=== PATIENT | female | born 1960 | race Caucasian/White ===

== ENCOUNTER 2017-02-11 07:32 | Day surgery (SDC) | payer BC ==
[2017-02-11] MEDS ORDERED: Lactated Ringers 1,000 ML IV SCH ×2 (08:00→10:15)
[2017-02-11] MEDS ORDERED: Midazolam 1 MG/ML 2 ML SDV IV ONE (09:15)
[2017-02-11] MEDS ORDERED: Propofol 200 MG/20 ML SDV IV ONE (09:15)
[2017-02-11] MEDS ORDERED: Flumazenil 0.1 MG/ML 5 ML MDV IV ONE (09:15)
[2017-02-11] MEDS ORDERED: fentaNYL 100 MCG/2 ML SDV IV ONE (09:15)
[2017-02-11] MEDS ORDERED: Ondansetron 4 MG/2 ML SDV IVPUSH ONE (09:15)
[2017-02-11] MEDS ORDERED: Sodium Chloride 0.9% 10 ML Syringe FLUSH PRN (09:15)
[2017-02-11] MEDS ORDERED: Ketamine 500 mg/10 ML MDV IV ONE (09:15)
[2017-02-11] MEDS ORDERED: Bupivacaine 0.5% 30 ML SDV ONE (09:31)
[2017-02-11] MEDS ORDERED: Acetaminophen/HYDROcodone 325-5 MG Tab PO PRN (10:13)
--- NOTE | 2017-02-11 11:47 | OR ---
DATE OF OPERATION: 02/11/2017 SURGEON: Tanmay Kaplan MD PREOPERATIVE DIAGNOSIS: Triggering, left long finger. POSTOPERATIVE DIAGNOSIS: Triggering, left long finger. PROCEDURE PERFORMED: Trigger finger release, left long finger. OPERATIVE NOTE: The patient was taken to the operative suite, placed carefully on the operative table in a supine position. The patient was then given a light anesthetic. Tourniquet was then placed around the left arm near the axillary border. Left upper extremity was then elevated and a sterile ChloraPrep performed from the tip of the fingers to the tip of the tourniquet. Sterile draping procedure was then carried out. The tourniquet inflated to 200 mmHg pressure. The patient then had a small incision measuring approximately an inch in length over the Boyer aspect of the hand slightly distal to the transverse volar crease. This was made in line with the long finger. Skin and subcutaneous tissues were carefully dissected through after we had injected the area with 0.5% plain Xylocaine. The A1 lore was brought into view and it was incised proximally and distally. The patient had excellent excursion of the tendon afterwards. The patient had the skin closed with 3-0 nylon in interrupted vertical mattress fashion. The area was cleansed and dried and sterile dressings applied. Tourniquet deflated. COMPLICATIONS: None. ESTIMATED BLOOD LOSS: Less than 3 mL. /[id number] SARA/JAZLYN
[2017-02-11 12:09] VITALS: BP 140/72
== END 2017-02-11 11:29 | disposition home or self-care (01) ==
LOC: FB.SDS 07:32
PROVIDERS: ATTEND Orthopaedic Surgery
DX: M65.332 Trigger finger, left middle finger (principal); E11.9 Type 2 diabetes mellitus without complications; I10 Essential (primary) hypertension; E03.9 Hypothyroidism, unspecified; E78.5 Hyperlipidemia, unspecified; K21.9 Gastro-esophageal reflux disease without esophagitis; E55.9 Vitamin D deficiency, unspecified; F32.9 Major depressive disorder, single episode, unspecified; Z79.82 Long term (current) use of aspirin; Z79.4 Long term (current) use of insulin; Z79.899 Other long term (current) drug therapy; Z90.49 Acquired absence of other specified parts of digestive tract; Z90.710 Acquired absence of both cervix and uterus; Z98.890 Other specified postprocedural states; Z87.891 Personal history of nicotine dependence
CPT/HCPCS: 26055; 82962; A9270; J2250; J2405; J2704; J3010; J7120; J3490

== ENCOUNTER 2017-03-22 21:55 | Emergency (ER) | payer BC ==
[2017-03-22] MEDS ORDERED: Ketorolac 60 MG/2 ML SDV IM ONE (23:15)
[2017-03-22 23:32] VITALS: BP 127/62
--- NOTE | 2017-03-23 00:31 | ER ---
DATE SEEN: 03/22/2017 TIME SEEN: 2215 hours CHIEF COMPLAINT: Palpitations. HISTORY OF PRESENT ILLNESS: This is a 57-year-old female complaining of palpitations for the last week, worse with any movement, not associated with any chest pain or shortness of breath. She also complains of pain in the feet and restlessness. REVIEW OF SYSTEMS: All other systems unremarkable. PAST MEDICAL HISTORY: Peripheral neuropathy, type 2 diabetes, depression, anxiety, and tobacco abuse. ALLERGIES: None. PHYSICAL EXAMINATION: VITAL SIGNS: Blood pressure is normal. She is afebrile and temp being 99.2, oxygenation 96% on room air. ENT: Negative. NECK: Supple. CHEST: Clear. CARDIOVASCULAR: Normal. EXTREMITIES: No edema. LABORATORY DATA: White blood cell count is 13.4, glucose more than 500. She had normal a troponin and negative D-dimer. EKG normal sinus rhythm. IMPRESSION: 1. Palpitations. 2. Type 2 diabetes with hyperglycemia. 3. Peripheral neuropathy. 4. Restless legs syndrome. PLAN: I gave her ketorolac and insulin. Recommended follow up in the office next week. Return to the ED with any worsening symptoms. /[id number] GUILLE/JAZLYN
[2017-03-23] MEDS ORDERED: Insulin Aspart 100 Units/ML 3 ML Pen SUBCUT ONE (23:14)
== END 2017-03-22 23:29 | disposition home or self-care (01) ==
LOC: FB.ED 21:55
DX: R00.2 Palpitations (principal); E11.65 Type 2 diabetes mellitus with hyperglycemia; E11.42 Type 2 diabetes mellitus with diabetic polyneuropathy; G25.81 Restless legs syndrome; F41.9 Anxiety disorder, unspecified; F32.9 Major depressive disorder, single episode, unspecified
CPT/HCPCS: 36415; 80048; 83880; 84484; 85025; 85379; 93005; 96372; 99285; J1885

== ENCOUNTER 2017-04-30 14:35 | Emergency (ER) | payer BC ==
[2017-04-30] MEDS ORDERED: Sodium Chloride 0.9% 1,000 ML IV SCH (16:00)
[2017-04-30] MEDS ORDERED: Sodium Chloride 0.9% 10 ML Syringe FLUSH PRN (17:01)
[2017-04-30 17:24] VITALS: BP 133/71
--- NOTE | 2017-05-04 12:44 | ER ---
DATE SEEN: 04/30/2017 TIME SEEN: The patient was seen at 1545 hours. 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 Had mild headache and had mild abdominal discomfort. She is diabetic. Today's glucose is 239. She considers herself to be a nervous patient. She has a special event going on this coming up weekend. She is concerned about being present for that (her niece's wedding). She has had palpitations in the past. She has been followed by Dr. Moran and she had a Holter monitor performed approximately 2 days and results were discussed with Dr. Moran. And she was told "She had no significant arrhythmias" MEDICATIONS: 1. Gabapentin 600 mg at bedtime. 2. Vitamin D. 3. Aspirin. 4. Ipratropium. 5. Albuterol nebs p.r.n. She has chronic obstructive lung disease. She is nonsmoker. 6. Chromium amino acid chelate. 7. Cymbalta for depression. 8. Fluticasone. 9. Salmeterol. 10.Advair Diskus. 11.Clobetasol propionate 0.5% topical b.i.d. 12.Insulin aspart 60 units subcu injection t.i.d. 13.Glargine 70 units b.i.d. 14.Omeprazole 20 mg daily. 15.Bupropion (Wellbutrin XL) 300 mg daily. 16.Sitagliptin-Janumet (metformin) b.i.d. 17.Sennosides-docusate sodium p.r.n. ALLERGIES: Adhesives. OTHER SIGNIFICANT PAST MEDICAL HISTORY: She has been evaluated for atypical chest pain in the past. Piriformis syndrome, thigh pain, migraines, pneumonia, esophagitis, gastroduodenitis, and colon polyps. REVIEW OF SYSTEMS: HEENT: Mild headache. Denies compromise in vision or neck stiffness or previous trauma. Denies sinusitis, sore throat, or cough. CARDIORESPIRATORY: As above. No chest pain. No cough. No irregularity of heartbeat. No fever. GI: She has midepigastric abdominal discomfort from the midepigastrium to the infraumbilical area. It is about 12-15 inches high and also between the right and left midclavicular line. No history of kidney stones. No history of blood in the stool, black tarry stool, diarrhea, constipation, GERD. ENDOCRINE: Denies large swings in her glucose. She has done quite well. Denies early satiety. Denies peripheral neuropathy. No gait disturbance. NEURO: Negative. No history of seizures, head injuries, or black out or TIAs or CVAs. PHYSICAL EXAMINATION: VITAL SIGNS: Blood pressure 137/62, heart rate 63 regular, oxygen saturations 98%, respirations 14, temperature 36.1 degrees. CONSTITUTIONAL: The patient is alert, slightly anxious, overweight. She is talkative and appropriate and has good eye contact. HEENT: PERRLA intact. Pharynx without abnormality. NECK: Supple. LUNGS: Clear to auscultation without rales, rhonchi, or wheezes. HEART: S1, S2. No irregular rate or rhythm. ABDOMEN: Soft. No guarding. No abdominal discomfort. There is increased abdominal girth. No CVA percussion tenderness. EXTREMITIES: Lower extremities without abnormality. Normal deep tendon reflexes. Normal upper and lower extremities. NEURO: Cranial nerves 2 through 12 intact. Oriented x3. No past pointing. No dysmetria. No pronator drift. No paresis or weakness. She has good muscle strength in upper and lower extremities. ASSESSMENT: 1. Anxiety disorder. 2. Dizziness and vomiting, etiology indeterminate, possibly something she has eaten that may have had transient food poisoning. I spoke to Dr. Moran about this patient. There is some question she might have palpitation, may warrant beta-blockers, but he noted she had Holter monitor that was negative. "They were just sinus arrhythmias." And Dr Braun felt she does not warrant beta- blockers or any heart medication to control heart rate. He felt that she would do well with propranolol for anxiety. PLAN: Start propranolol 10 to 20 mg stat at the onset of anxiety. She can use up to 30 mg. She has follow up with Dr. Moran next week. The patient dismissed, encouraged to drink adequate fluids. DIAGNOSES: 1. Anxiety induced palpitations and irregular heartbeat. Dizziness. 2. Etiology of vomiting and sweating probably food poison related Escherichia coli attack or other staphylococcal food poisons. 3. Overweight. 4. Anxiety disorder. 5. Diabetes relatively well controlled. 6. No evidence for myocardial infarction or arrhythmia. She has normal EKG with low voltage precordial leads and sinus rhythm. No evidence for ST elevation. The patient to follow up with doctor in a week. TIME SPENT: Time spent with the patient is 45 minutes. /[id number] JACK/JAZLYN SANCHEZ
== END 2017-04-30 17:23 | disposition home or self-care (01) ==
LOC: FB.ED 14:35
DX: F41.9 Anxiety disorder, unspecified (principal); R42 Dizziness and giddiness; R11.10 Vomiting, unspecified; E11.9 Type 2 diabetes mellitus without complications; Z91.048 Other nonmedicinal substance allergy status; Z79.4 Long term (current) use of insulin; Z79.899 Other long term (current) drug therapy
CPT/HCPCS: 36415; 80053; 85025; 93005; 96360; 99284; J7040; J7050

== ENCOUNTER 2017-06-21 08:00 | Emergency (ER) | payer BC ==
[2017-06-21] MEDS ORDERED: Lactated Ringers 1,000 ML IV ONE (08:31)
[2017-06-21] MEDS ORDERED: diphenhydrAMINE 50 MG/ML SDV IVPUSH ONE (08:32)
[2017-06-21] MEDS ORDERED: Ketorolac 30 MG/ML SDV IVPUSH ONE (08:32)
[2017-06-21] MEDS ORDERED: Prochlorperazine 10 MG/2 ML SDV IVPUSH ONE (08:32)
[2017-06-21 08:35] VITALS: BP 111/75
--- NOTE | 2017-06-21 08:38 | EDM.PDOC ---
ED HPI GENERAL MEDICAL PROBLEM - General Chief Complaint: Headache Stated Complaint: HEAD ACHE Time Seen by Provider: 06/21/17 08:25 Source of Information: Reports: Patient, Old Records History Limitations: Reports: No Limitations - History of Present Illness INITIAL COMMENTS - FREE TEXT/NARRATIVE: 57 yo female with a pHx of migraine presents with another one that began about noon yesterday. Has vomited several times. No fever. Sensitive to light. No hematemesis. 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 Is a little light-headed with standing. Took Excedrin Migraine without benefit. 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 below) (Excedrin Migraine yesterday) - Related Data Allergies Allergy/AdvReac Type Severity Reaction Status Date / Time adhes Allergy Rash Uncoded 04/30/17 15:57 Home Meds: Home Meds Aspirin [Adult Low Dose Aspirin EC] 325 mg PO DAILY 09/16/14 [History] Albuterol/Ipratropium [DuoNeb 3.0-0.5 MG/3 ML] 1 - 2 puff IH ASDIRECTED PRN [History] DULoxetine [Cymbalta] 60 mg PO DAILY 12/11/15 [History] Insulin Aspart [Novolog Flexpen] 3 - 60 unit SQ ASDIRECTED 12/11/15 [History] Insulin Glargine,Hum.Rec.Anlog [Toujeo Solostar] 80 unit SQ BID 12/11/15 [ History] Ondansetron [Zofran] 4 mg PO Q6H PRN 12/11/15 [History] Sennosides/Docusate Sodium [Senokot-S Tablet] 1 each PO DAILY PRN 12/11/15 [ History] sitaGLIPtin Phos/Metformin HCl [Janumet 50-1,000 MG] 1 tab PO BID 12/11/15 [ History] Clobetasol [Clobetasol Propionate 0.05%] 45 gm TOP BID 02/10/17 [History] Fluticasone/Salmeterol [Advair Diskus 100-50] 1 puff INH BID 02/10/17 [History] Gabapentin [Gralise] 200 mg PO DAILY 02/10/17 [History] Gabapentin [Neurontin] 300 mg PO DAILY 02/10/17 [History] Omeprazole Magnesium [Prilosec Otc] 20 mg PO DAILY 02/10/17 [History] buPROPion [Wellbutrin XL] 300 mg PO DAILY 02/10/17 [History] Propranolol [Inderal] 10 mg PO QID PRN #20 tablet 04/30/17 [Rx] Acetaminop/Dichlphn/Isomethept [Midrin 325-100-65 MG] 1 cap PO Q2H PRN #14 cap 06/21/17 [Rx] Past Medical History HEENT History: Reports: Cataract, Impaired Vision Cardiovascular History: Reports: Arrhythmia, High Cholesterol, Hypertension Respiratory History: Reports: SOB Gastrointestinal History: Reports: Gastritis, GERD 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: , Other (See Below) Other OB/BYN History: VULVULAR / VAGINAL LESIONS REMOVED Musculoskeletal History: Reports: Fibromyalgia, Other (See Below) Other Musculoskeletal History: MYALGIA AND MYOSITIS Neurological History: Reports: Migraines, Neuropathy, Peripheral Psychiatric History: Reports: Anxiety, Depression Endocrine/Metabolic History: Reports: Diabetes, Type II, Hypothyroidism, Obesity /BMI 30+ Immunologic History: Reports: None Oncologic (Cancer) History: Reports: Cervix - Infectious Disease History 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 I PARA I. SON AT AGE 31 OF MELANOMA. Musculoskeletal Surgical History: Reports: Carpal Tunnel Social & Family History - Family History Family Medical History: Noncontributory - Tobacco Use Smoking Status *Q: Current Every Day Smoker Years of Tobacco use: 37 Packs/Tins Daily: 1 Used Tobacco, but Quit: No Month Tobacco Last Used: 06/01/2016 Second Hand Smoke Exposure: Yes - Caffeine Use Caffeine Use: Reports: Coffee, Soda - Alcohol Use Days Per Week of Alcohol Use: 0 - Recreational Drug Use Recreational Drug Use: No ED ROS GENERAL - Review of Systems Review Of Systems: See Below Constitutional: Reports: Decreased Appetite HEENT: Reports: No Symptoms Respiratory: Reports: No Symptoms Cardiovascular: Reports: No Symptoms GI/Abdominal: Reports: Decreased Appetite, Nausea, Vomiting. Denies: Constipation, Diarrhea : Reports: Incontinence Musculoskeletal: Reports: No Symptoms Skin: Reports: No Symptoms Neurological: Reports: Headache, Weakness Psychiatric: Reports: No Symptoms - Physical Exam Exam: See Below Exam Limited By: No Limitations General Appearance: Alert, WD/WN, Mild Distress Eye Exam: Bilateral Eye: Normal Inspection Ears: Normal External Exam, Normal Canal, Hearing Grossly Normal, Normal TMs Nose: Normal Inspection, Normal Mucosa, No Blood Throat/Mouth: Normal Inspection, Normal Lips, Normal Teeth, Normal Oropharynx, Normal Voice, No Airway Compromise Head Exam: Atraumatic, Normocephalic Neck: Normal Inspection, Supple, Non-Tender Respiratory/Chest: No Respiratory Distress, Lungs Clear, Normal Breath Sounds, No Accessory Muscle Use Cardiovascular: Regular Rate, Rhythm, No Edema GI/Abdominal: Normal Bowel Sounds, Soft, Non-Tender Neuro Exam (Abbreviated): Alert, Oriented, CN II-XII Intact, Normal Cognition, No Motor/Sensory Deficits Back Exam: Normal Inspection Extremities: Normal Inspection, Normal Range of Motion, Non-Tender, No Pedal Edema Psychiatric: Normal Affect, Normal Mood Skin Exam: Warm, Dry, Intact, Normal Color, No Rash Course - Vital Signs Last Recorded V/S: Last Vital Signs Temp 35.8 C 06/21/17 08:15 Pulse 66 06/21/17 08:15 Resp 18 06/21/17 08:15 BP 111/75 06/21/17 08:15 Pulse Ox 96 06/21/17 08:15 - Orders/Labs/Meds Orders: Active Orders 24 hr Category Date Time Status Accu Check [Blood Glucose Check, Bedside] [] ONETIME Care 06/21/17 08:33 Active Labs: Laboratory Tests 06/21/17 Range/Units 08:06 POC Glucose 113 (80-116) mg/dL Meds: Medications Discontinued Medications Generic Name Dose Route Start Last Admin Trade Name Freq PRN Reason Stop Dose Admin Diphenhydramine HCl 25 mg 06/21/17 08:32 06/21/17 08:57 Benadryl IVPUSH 06/21/17 08:33 25 mg ONETIME ONE Administration Lactated Ringer's 1,000 mls @ 1,000 mls/hr 06/21/17 08:31 06/21/17 08:57 Ringers, Lactated IV 06/21/17 09:30 1,000 mls/hr BOLUS ONE Administration Ketorolac Tromethamine 30 mg 06/21/17 08:32 06/21/17 08:57 Toradol IVPUSH 06/21/17 08:33 30 mg ONETIME ONE Administration Prochlorperazine Edisylate 10 mg 06/21/17 08:32 06/21/17 08:57 Compazine IVPUSH 06/21/17 08:33 10 mg ONETIME ONE Administration Departure - Departure Time of Disposition: 10:00 Disposition: Home, Self-Care 01 Condition: Good Clinical Impression: Migraine Qualifiers: Migraine type: without aura Status migrainosus presence: with status migrainosus Intractability: not intractable Qualified Code(s): G43.001 - Migraine without aura, not intractable, with status migrainosus - Discharge Information Prescriptions: Acetaminop/Dichlphn/Isomethept [Midrin 325-100-65 MG] 1 cap PO Q2H PRN #14 cap PRN Reason: Headache Referrals: Horacio Moran MD [Primary Care Provider] - Forms: ED Department Discharge Additional Instructions: Continue your present medicines. Add magnesium 500 mg daily to reduce the frequency of your TOLENTINO's. Take Midrin as directed to tx any future TOLENTINO's. Recheck with your provider in the next couple of weeks-call for an appt. No driving today. - My Orders Last 24 Hours: My Active Orders 06/21/17 08:33 Accu Check [Blood Glucose Check, Bedside] [RC] ONETIME - Assessment/Plan Last 24 Hours: My Active Orders 06/21/17 08:33 Accu Check [Blood Glucose Check, Bedside] [RC] ONETIME
== END 2017-06-21 10:10 | disposition home or self-care (01) ==
LOC: FB.ED 08:00
DX: G43.001 Migraine without aura, not intractable, with status migrainosus (principal); E78.00 Pure hypercholesterolemia, unspecified; K21.9 Gastro-esophageal reflux disease without esophagitis; F41.9 Anxiety disorder, unspecified; F32.9 Major depressive disorder, single episode, unspecified; E03.9 Hypothyroidism, unspecified; E66.9 Obesity, unspecified; F17.210 Nicotine dependence, cigarettes, uncomplicated; Z91.09 Other allergy status, other than to drugs and biological substances; Z90.89 Acquired absence of other organs; Z90.710 Acquired absence of both cervix and uterus; Z79.4 Long term (current) use of insulin; Z79.82 Long term (current) use of aspirin; Z79.899 Other long term (current) drug therapy; Z68.35 Body mass index [BMI] 35.0-35.9, adult
CPT/HCPCS: 82962; 96361; 96374; 96375; 99283; J0780; J1200; J1885; J7120

== ENCOUNTER 2017-08-03 01:53 | Emergency (ER) | payer BC ==
[2017-08-03] MEDS ORDERED: Sodium Chloride 0.9% 1,000 ML IV ONE (02:08)
[2017-08-03] MEDS ORDERED: Ketorolac 30 MG/ML SDV IVPUSH ONE (02:09)
[2017-08-03] MEDS ORDERED: Metoclopramide 10 MG/2 ML SDV IVPUSH ONE (02:09)
[2017-08-03] MEDS ORDERED: diphenhydrAMINE 50 MG/ML SDV IVPUSH ONE (02:10)
[2017-08-03 03:35] VITALS: BP 121/84
--- NOTE | 2017-08-03 03:43 | EDM.PDOC ---
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(s) Other Treatments DUCK FARMER: Midrin Headache Pain Score (Numeric/FACES): 6 - Related Data Allergies Allergy/AdvReac Type Severity Reaction Status Date / Time adhes Allergy Rash Uncoded 08/03/17 02:29 Home Meds: Home Meds Aspirin [Adult Low Dose Aspirin EC] 325 mg PO DAILY 09/16/14 [History] DULoxetine [Cymbalta] 60 mg PO DAILY 12/11/15 [History] Insulin Aspart [Novolog Flexpen] 3 - 60 unit SQ ASDIRECTED 12/11/15 [History] Insulin Glargine,Hum.Rec.Anlog [Toujeo Solostar] 80 unit SQ BID 12/11/15 [ History] Ondansetron [Zofran] 4 mg PO Q6H PRN 12/11/15 [History] Sennosides/Docusate Sodium [Senokot-S Tablet] 1 each PO DAILY PRN 12/11/15 [ History] sitaGLIPtin Phos/Metformin HCl [Janumet 50-1,000 MG] 1 tab PO BID 12/11/15 [ History] Clobetasol [Clobetasol Propionate 0.05%] 45 gm TOP BID 02/10/17 [History] Fluticasone/Salmeterol [Advair Diskus 100-50] 1 puff INH BID PRN 02/10/17 [ History] Gabapentin [Gralise] 200 mg PO DAILY 02/10/17 [History] Gabapentin [Neurontin] 300 mg PO BEDTIME 02/10/17 [History] Omeprazole Magnesium [Prilosec Otc] 20 mg PO DAILY 02/10/17 [History] buPROPion [Wellbutrin XL] 300 mg PO DAILY 02/10/17 [History] Propranolol [Inderal] 10 mg PO QID PRN #20 tablet 04/30/17 [Rx] Acetaminop/Dichlphn/Isomethept [Midrin 325-100-65 MG] 1 cap PO Q2H PRN #14 cap 06/21/17 [Rx] Past Medical History HEENT History: Reports: Cataract, Impaired Vision Cardiovascular History: Reports: Arrhythmia, High Cholesterol, Hypertension Respiratory History: Reports: SOB Gastrointestinal History: Reports: Gastritis, GERD 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: , Other (See Below) Other OB/BYN History: VULVULAR / VAGINAL LESIONS REMOVED Musculoskeletal History: Reports: Fibromyalgia, Other (See Below) Other Musculoskeletal History: MYALGIA AND MYOSITIS Neurological History: Reports: Migraines, Neuropathy, Peripheral Psychiatric History: Reports: Anxiety, Depression Endocrine/Metabolic History: Reports: Diabetes, Type II, Hypothyroidism, Obesity /BMI 30+ Immunologic History: Reports: None Oncologic (Cancer) History: Reports: Cervix - Infectious Disease History Infectious Disease History: Reports: [id number] Enterobacteriaceae - Past Surgical History HEENT Surgical History: Reports: Cataract Surgery, Oral Surgery, Tonsillectomy Other HEENT Surgeries/Procedures: BILATERAL CATARACT SURGERY GI Surgical History: Reports: Appendectomy, Colonoscopy, EGD Female Surgical History: Reports: Hysterectomy, Other (See Below) Other Female Surgeries/Procedures: URETHRAL SUSPENPENSION, BLADDER REPAIR. I PARA I. SON AT AGE 31 OF MELANOMA. Musculoskeletal Surgical History: Reports: Carpal Tunnel Social & Family History - Family History Family Medical History: Noncontributory - Tobacco Use Smoking Status *Q: Current Every Day Smoker Years of Tobacco use: 37 Packs/Tins Daily: 1 Used Tobacco, but Quit: No Month Tobacco Last Used: 06/01/2016 Second Hand Smoke Exposure: Yes - Caffeine Use Caffeine Use: Reports: Coffee, Soda - Alcohol Use Days Per Week of Alcohol Use: 0 - Recreational Drug Use Recreational Drug Use: No ED ROS GENERAL - Review of Systems Review Of Systems: See Below Constitutional: Reports: No Symptoms HEENT: Reports: No Symptoms Respiratory: Reports: No Symptoms Cardiovascular: Reports: No Symptoms Endocrine: Reports: No Symptoms GI/Abdominal: Reports: No Symptoms : Reports: No Symptoms Musculoskeletal: Reports: No Symptoms Skin: Reports: No Symptoms Neurological: Reports: Headache Psychiatric: Reports: No Symptoms Hematologic/Lymphatic: Reports: No Symptoms Immunologic: Reports: No Symptoms - Physical Exam Exam: See Below Exam Limited By: No Limitations General Appearance: Alert, WD/WN, Mild Distress Eye Exam: Bilateral Eye: Normal Inspection, PERRL Ears: Normal External Exam Nose: Normal Inspection Throat/Mouth: Normal Inspection, Normal Voice, No Airway Compromise Head Exam: Atraumatic, Normocephalic Neck: Normal Inspection, Supple, Non-Tender Respiratory/Chest: No Respiratory Distress, Lungs Clear, Normal Breath Sounds, No Accessory Muscle Use, Chest Non-Tender Cardiovascular: Regular Rate, Rhythm, No Edema, No Gallop, No JVD, No Rub, Other (2/6 MIRANDA at LSB) GI/Abdominal: Soft, Non-Tender, No Distention Neuro Exam (Abbreviated): Alert, Oriented, CN II-XII Intact, Normal Cognition, No Motor/Sensory Deficits Back Exam: Normal Inspection, Full Range of Motion, NT Extremities: Normal Inspection, Normal Range of Motion, Non-Tender, No Pedal Edema Psychiatric: Normal Affect, Normal Mood Skin Exam: Warm, Dry, Intact, Normal Color, No Rash Course - Vital Signs Last Recorded V/S: Last Vital Signs Temp 37.1 C 08/03/17 02:25 Pulse 69 08/03/17 02:25 Resp 18 08/03/17 02:25 BP 121/84 08/03/17 02:25 Pulse Ox 97 08/03/17 02:25 - Orders/Labs/Meds Meds: Medications Discontinued Medications Generic Name Dose Route Start Last Admin Trade Name Hattie PRN Reason Stop Dose Admin Diphenhydramine HCl 50 mg 08/03/17 02:10 08/03/17 02:37 Benadryl IVPUSH 08/03/17 02:11 50 mg ONETIME ONE Administration Sodium Chloride 1,000 mls @ 999 mls/hr 08/03/17 02:08 08/03/17 02:37 Normal Saline IV 08/03/17 03:08 999 mls/hr .BOLUS ONE Administration Ketorolac Tromethamine 30 mg 08/03/17 02:09 08/03/17 02:38 Toradol IVPUSH 08/03/17 02:10 30 mg ONETIME ONE Administration Metoclopramide HCl 10 mg 08/03/17 02:09 08/03/17 02:37 Reglan IVPUSH 08/03/17 02:10 10 mg ONETIME ONE Administration Departure - Departure Time of Disposition: 03:42 Disposition: Home, Self-Care 01 Condition: Good Clinical Impression: Migraine Qualifiers: Migraine type: without aura Status migrainosus presence: with status migrainosus Intractability: not intractable Qualified Code(s): G43.001 - Migraine without aura, not intractable, with status migrainosus - Discharge Information Instructions: Recurrent Migraine Headache, [id number] Referrals: Horacio Moran MD [Primary Care Provider] - Additional Instructions: To break pain cycle, take ibuprofen 200 mg 3 tabs 4 times today. Use ice to forehead for 10 minutes every 2 hours as needed. Rest. See you doctor in 1-2 days.
== END 2017-08-03 03:55 | disposition home or self-care (01) ==
LOC: FB.ED 01:53
DX: G43.001 Migraine without aura, not intractable, with status migrainosus (principal); I10 Essential (primary) hypertension; E78.00 Pure hypercholesterolemia, unspecified; E11.42 Type 2 diabetes mellitus with diabetic polyneuropathy; E03.9 Hypothyroidism, unspecified; K21.9 Gastro-esophageal reflux disease without esophagitis; F32.9 Major depressive disorder, single episode, unspecified; F17.210 Nicotine dependence, cigarettes, uncomplicated; Z79.4 Long term (current) use of insulin; Z79.82 Long term (current) use of aspirin; Z79.899 Other long term (current) drug therapy; Z91.048 Other nonmedicinal substance allergy status
CPT/HCPCS: 96361; 96374; 96375; 99283; J1200; J1885; J2765; J7040

== ENCOUNTER 2018-10-09 13:06 | Emergency (ER) | payer MEDICAID ==
[2018-10-09] MEDS ORDERED: Alum Hydroxide/Mag Hydroxide 15 ML, Lidocaine 2% 15 ML PO ONE ×2 (13:14)
[2018-10-09] MEDS ORDERED: Ondansetron 8 MG Tab.DIS PO ONE (13:14)
[2018-10-09] MEDS ORDERED: Aspirin 81 MG Tab.EC PO ONE ×2 (13:16→13:18)
--- NOTE | 2018-10-09 13:20 | EDM.PDOC ---
ED HPI GENERAL MEDICAL PROBLEM - General Stated Complaint: SOB,CHEST PAIN,DIZZINESS,NECK PAIN Time Seen by Provider: 10/09/18 13:06 Source of Information: Reports: Patient, Other History Limitations: Reports: No Limitations - History of Present Illness INITIAL COMMENTS - FREE TEXT/NARRATIVE: 58 y.o.w.f with IDDM- smoker- came to the walk in clinic due to epigastric pain and left ant ant chest wall pain, she was transferred to the ed for further evaluation. An arrival, pt c/o left ant chest wall pain with palpation and deep inspiration, epigastric pain, pain at her left thigh (chronic), feet burning and pain/swelling/redness right 2nd toe. No N/V/D or diaphoresis. 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) Epigastric Pain Score (Numeric/FACES): 8 - Related Data Allergies Allergy/AdvReac Type Severity Reaction Status Date / Time No Known Allergies Allergy Verified 10/09/18 13:24 Home Meds: Home Meds Aspirin [Adult Low Dose Aspirin EC] 81 mg PO DAILY 09/16/14 [History] DULoxetine [Cymbalta] 60 mg PO DAILY 12/11/15 [History] Insulin Aspart [Novolog Flexpen] 3 - 60 unit SQ ASDIRECTED 12/11/15 [History] Insulin Glargine,Hum.Rec.Anlog [Toujeo Solostar] 90 unit SQ DAILY 12/11/15 [ History] Sennosides/Docusate Sodium [Senokot-S Tablet] 1 each PO DAILY PRN 12/11/15 [ History] sitaGLIPtin Phos/Metformin HCl [Janumet 50-1,000 MG] 1 tab PO BID 12/11/15 [ History] Clobetasol [Clobetasol Propionate 0.05%] 45 gm TOP BID 02/10/17 [History] Fluticasone/Salmeterol [Advair Diskus 100-50] 1 puff INH BID PRN 02/10/17 [ History] Gabapentin [Gralise] 200 mg PO DAILY 02/10/17 [History] Gabapentin [Neurontin] 300 mg PO BEDTIME 02/10/17 [History] Omeprazole Magnesium [Prilosec Otc] 20 mg PO DAILY 02/10/17 [History] buPROPion [Wellbutrin XL] 300 mg PO DAILY 02/10/17 [History] Meloxicam 7.5 mg PO ASDIRECTED 08/29/18 [History] Oxybutynin Chloride [Ditropan Xl] 10 mg PO DAILY 08/29/18 [History] Simvastatin 20 mg PO DAILY 08/29/18 [History] metFORMIN HCl [Metformin HCl] 1,000 mg PO BID 08/29/18 [History] rOPINIRole [Requip] 2 mg PO BEDTIME 08/29/18 [History] traZODone HCl [Trazodone HCl] 50 mg PO BEDTIME 08/29/18 [History] Amoxicillin/Potassium Clav [Augmentin 875-125 Tablet] 1 each PO BID #20 tablet 10/09/18 [Rx] Clotrimazole [Lotrimin AF] 0.01 gm TOP BID #1 tube 10/09/18 [Rx] Past Medical History HEENT History: Reports: Cataract, Impaired Vision Cardiovascular History: Reports: Arrhythmia, High Cholesterol, Hypertension Respiratory History: Reports: SOB Gastrointestinal History: Reports: Gastritis, GERD 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: , Other (See Below) Other TRAFFIC I MANAGER History: VULVULAR / VAGINAL LESIONS REMOVED Musculoskeletal History: Reports: Fibromyalgia, Other (See Below) Other Musculoskeletal History: MYALGIA AND MYOSITIS Neurological History: Reports: Migraines, Neuropathy, Peripheral Psychiatric History: Reports: Anxiety, Depression Endocrine/Metabolic History: Reports: Diabetes, Type II, Hypothyroidism, Obesity /BMI 30+ Immunologic History: Reports: None Oncologic (Cancer) History: Reports: Cervix - Infectious Disease History 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 I PARA I. SON AT AGE 31 OF [place]. Musculoskeletal Surgical History: Reports: Carpal Tunnel Social & Family History - Family History Family Medical History: Noncontributory - Caffeine Use Caffeine Use: Reports: Coffee ED ROS GENERAL - Review of Systems Review Of Systems: See Below Constitutional: Reports: Malaise HEENT: Reports: No Symptoms Respiratory: Reports: Pleuritic Chest Pain Cardiovascular: Reports: Chest Pain Endocrine: Reports: No Symptoms GI/Abdominal: Reports: Abdominal Pain (epigastric) : Reports: No Symptoms Musculoskeletal: Reports: Leg Pain (left thigh, chronic (years)) Skin: Reports: No Symptoms Neurological: Reports: No Symptoms Psychiatric: Reports: No Symptoms Hematologic/Lymphatic: Reports: No Symptoms Immunologic: Reports: No Symptoms ED EXAM, GENERAL - Physical Exam Exam: See Below Exam Limited By: No Limitations General Appearance: Alert, WD/WN, Moderate Distress Eye Exam: Bilateral Eye: Normal Inspection Ears: Normal External Exam Ear Exam: Bilateral Ear: Auricle Normal Nose: Normal Inspection, Normal Mucosa, No Blood Throat/Mouth: Normal Inspection, Normal Lips, Normal Voice, No Airway Compromise Head: Atraumatic, Normocephalic Neck: Normal Inspection, Supple, Non-Tender, Full Range of Motion Respiratory/Chest: No Respiratory Distress, Lungs Clear Cardiovascular: Normal Peripheral Pulses, Regular Rate, Rhythm, No Edema, No Gallop, No JVD, No Murmur, No Rub Peripheral Pulses: 2+: Brachial (L) GI/Abdominal: Normal Bowel Sounds (Female) Exam: Deferred Rectal (Female) Exam: Deferred Back Exam: Normal Inspection Extremities: Normal Range of Motion, Normal Capillary Refill, Redness (right 2nd toe) Neurological: Alert, Oriented, CN II-XII Intact, Normal Cognition, Abnormal Gait (due to right toe pain) Psychiatric: Normal Affect, Normal Mood Skin Exam: Rash (right second toe) Lymphatic: No Adenopathy EKG INTERPRETATION EKG Date: 10/09/18 Time: 13:10 Rhythm: NSR Rate (Beats/Min): 68 [place]: Normal P-Wave: Present QRS: Normal ST-T: Normal QT: Normal Comparison: NA - No Prior EKG Course - Vital Signs Text/Narrative:: 58 y.o.w.f with IDDM- smoker- came to the walk in clinic due to epigastric pain and left ant ant chest wall pain, she was transferred to the ed for further evaluation. An arrival, pt c/o left ant chest wall pain with palpation and deep inspiration, epigastric pain, pain at her left thigh (chronic), feet burning and pain/swelling/redness right 2nd toe. No N/V/D or diaphoresis. 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 147/107 RR 20 Pulse ox 98% on RA Temp 36.9 Pulse 89 PE: WNWD W F with IDDM and multiple complains, please see above Imaging: CXR, R food: Right 2nd toe swelling Labs: CBC NL BMP pos for Na 134 HGB/A1C 9.3, BUN/CR ratio elevated Cl 97 UA: Glucosuria Impression: Gastritis, Pleurisy, IDDM with hyperglycemia, Hammer toe 2nd right foot with possible osteomyelitis. Left thigh pain (chronic), BUN/CR ratio elevated. Tinea pedis bilat. Tx: Toradol, Zofran, GI cocktail. Insulin, Augmentin, NS Reexam: Improved, pt was ambulating on D/C fine BS on D/C was 254 Plan: D/C with instructions Last Recorded V/S: Last Vital Signs Temp 36.9 C 10/09/18 13:06 Pulse 59 L 10/09/18 15:30 Resp 19 10/09/18 15:30 BP 143/70 H 10/09/18 15:30 Pulse Ox 98 10/09/18 15:30 - Orders/Labs/Meds Orders: Active Orders 24 hr Category Date Time Status Accu Check [Blood Glucose Check, Bedside] [RC] ONETIME Care 10/09/18 17:51 Active EKG Documentation Completion [RC] ASDIRECTED Care 10/09/18 13:15 Active EKG Documentation Completion [RC] STAT Care 10/09/18 13:14 Active CXR [Chest 2V] [CR] Stat Exams 10/09/18 13:29 Taken Toes Second Digit Rt T6 [CR] Stat Exams 10/09/18 13:40 Taken EKG 12 Lead [EK] Routine Ther 10/09/18 13:14 Ordered Labs: Laboratory Tests 10/09/18 10/09/1810/09/19 Range/Units 13:25 13:25 13:25 WBC 11.9 (4.5-12.0) X10-3/uL RBC 4.77 (3.23-5.20) x10(6)uL Hgb 14.1 (11.5-15.5) g/dL Hct 42.2 (30.0-51.3) % MCV 88.4 (80-96) fL MCH 29.7 (27.7-33.6) pg MCHC 33.5 (32.2-35.4) g/dL RDW 14.0 (11.5-15.5) % Plt Count 331 (125-369) X10(3)uL MPV 7.6 (7.4-10.4) fL Neut % (Auto) 67.5 (46-82) % Lymph % (Auto) 25.7 (13-37) % [place] % (Auto) 4.2 (4-12) % Eos % (Auto) 2 (1.0-5.0) % Baso % (Auto) 1 (0-2) % Neut # (Auto) 8.0 (1.6-8.3) # Lymph # (Auto) 3.1 (0.6-5.0) # [place] # (Auto) 0.5 (0.0-1.3) # Eos # (Auto) 0.2 (0.0-0.8) # Baso # (Auto) 0.1 (0.0-0.2) # D-Dimer, Quantitative (0.0-0.59) mg/LFEU Sodium 134 L (135-145) mmol/L Potassium 4.5 (3.5-5.3) mmol/L Chloride 97 L (100-110) mmol/L Carbon Dioxide 30 (21-32) mmol/L BUN 20 H (7-18) mg/dL Creatinine 0.9 (0.55-1.02) mg/dL Est Cr Clr Drug Dosing 62.80 mL/min Estimated GFR (MDRD) > 60 (>60) BUN/Creatinine Ratio 22.2 H (9-20) Glucose 308 H (80-116) mg/dL POC Glucose (80-116) mg/dL Hemoglobin A1c (4.5-6.2) % Calcium 9.0 (8.6-10.2) mg/dL Troponin I < 0.017 L (<0.017-0.056) ng/mL Amylase (25-115) U/L Urine Color (YELLOW) Urine Appearance (CLEAR) Urine pH (5.0-6.5) Ur Specific [place] (1.010-1.025) Urine Protein (NEGATIVE) mg/dL Urine Glucose (UA) (NEGATIVE) mg/dL Urine Ketones (NEGATIVE) mg/dL Urine Occult Blood (NEGATIVE) Urine Nitrite (NEGATIVE) Urine Bilirubin (NEGATIVE) Urine Urobilinogen (NEGATIVE) mg/dL Ur Leukocyte Esterase (NEGATIVE) Urine RBC (0) Urine WBC (0) Ur Squamous Epith Cells (NS,R,O) Urine Bacteria (NS) 10/09/18 10/09/18 10/09/18 Range/Units 13:25 13:25 13:25 WBC (4.5-12.0) X10-3/uL RBC (3.23-5.20) x10(6)uL Hgb (11.5-15.5) g/dL Hct (30.0-51.3) % MCV (80-96) fL MCH (27.7-33.6) pg MCHC (32.2-35.4) g/dL RDW (11.5-15.5) % Plt Count (125-369) X10(3)uL MPV (7.4-10.4) fL Neut % (Auto) (46-82) % Lymph % (Auto) (13-37) % [place] % (Auto) (4-12) % Eos % (Auto) (1.0-5.0) % Baso % (Auto) (0-2) % Neut # (Auto) (1.6-8.3) # Lymph # (Auto) (0.6-5.0) # [place] # (Auto) (0.0-1.3) # Eos # (Auto) (0.0-0.8) # Baso # (Auto) (0.0-0.2) # D-Dimer, Quantitative 0.49 (0.0-0.59) mg/LFEU Sodium (135-145) mmol/L Potassium (3.5-5.3) mmol/L Chloride (100-110) mmol/L Carbon Dioxide (21-32) mmol/L BUN (7-18) mg/dL Creatinine (0.55-1.02) mg/dL Est Cr Clr Drug Dosing mL/min Estimated GFR (MDRD) (>60) BUN/Creatinine Ratio (9-20) Glucose (80-116) mg/dL POC Glucose (80-116) mg/dL Hemoglobin A1c 9.5 H (4.5-6.2) % Calcium (8.6-10.2) mg/dL Troponin I (<0.017-0.056) ng/mL Amylase 19 L (25-115) U/L Urine Color (YELLOW) Urine Appearance (CLEAR) Urine pH (5.0-6.5) Ur Specific [place] (1.010-1.025) Urine Protein (NEGATIVE) mg/dL Urine Glucose (UA) (NEGATIVE) mg/dL Urine Ketones (NEGATIVE) mg/dL Urine Occult Blood (NEGATIVE) Urine Nitrite (NEGATIVE) Urine Bilirubin (NEGATIVE) Urine Urobilinogen (NEGATIVE) mg/dL Ur Leukocyte Esterase (NEGATIVE) Urine RBC (0) Urine WBC (0) Ur Squamous Epith Cells (NS,R,O) Urine Bacteria (NS) 10/09/18 10/09/18 Range/Units 13:45 15:27 WBC (4.5-12.0) X10-3/uL RBC (3.23-5.20) x10(6)uL Hgb (11.5-15.5) g/dL Hct (30.0-51.3) % MCV (80-96) fL MCH (27.7-33.6) pg MCHC (32.2-35.4) g/dL RDW (11.5-15.5) % Plt Count (125-369) X10(3)uL MPV (7.4-10.4) fL Neut % (Auto) (46-82) % Lymph % (Auto) (13-37) % [place] % (Auto) (4-12) % Eos % (Auto) (1.0-5.0) % Baso % (Auto) (0-2) % Neut # (Auto) (1.6-8.3) # Lymph # (Auto) (0.6-5.0) # [place] # (Auto) (0.0-1.3) # Eos # (Auto) (0.0-0.8) # Baso # (Auto) (0.0-0.2) # D-Dimer, Quantitative (0.0-0.59) mg/LFEU Sodium (135-145) mmol/L Potassium (3.5-5.3) mmol/L Chloride (100-110) mmol/L Carbon Dioxide (21-32) mmol/L BUN (7-18) mg/dL Creatinine (0.55-1.02) mg/dL Est Cr Clr Drug Dosing mL/min Estimated GFR (MDRD) (>60) BUN/Creatinine Ratio (9-20) Glucose (80-116) mg/dL POC Glucose 265 H D (80-116) mg/dL Hemoglobin A1c (4.5-6.2) % Calcium (8.6-10.2) mg/dL Troponin I (<0.017-0.056) ng/mL Amylase (25-115) U/L Urine Color Yellow (YELLOW) Urine Appearance Clear (CLEAR) Urine pH 5.0 (5.0-6.5) Ur Specific [place] 1.020 (1.010-1.025) Urine Protein Negative (NEGATIVE) mg/dL Urine Glucose (UA) >1000 H (NEGATIVE) mg/dL Urine Ketones Negative (NEGATIVE) mg/dL Urine Occult Blood Trace (NEGATIVE) Urine Nitrite Negative (NEGATIVE) Urine Bilirubin Negative (NEGATIVE) Urine Urobilinogen Normal (NEGATIVE) mg/dL Ur Leukocyte Esterase Negative (NEGATIVE) Urine RBC 0-5 (0) Urine WBC 0-5 (0) Ur Squamous Epith Cells Moderate H (NS,R,O) Urine Bacteria Few H (NS) Meds: Medications Discontinued Medications Generic Name Dose Route Start Last Admin Trade Name Freq PRN Reason Stop Dose Admin Amoxicillin/Clavulanate Potassium 1 tab 10/09/18 15:29 10/09/18 15:34 Augmentin 875 Mg/125 Mg PO 10/09/18 15:30 1 tab ONETIME ONE Administration Aspirin 162 mg 10/09/18 13:16 10/09/18 13:31 Halfprin PO 10/09/18 13:17 Not Given ONETIME ONE Aspirin 81 mg 10/09/18 13:18 10/09/18 13:31 Halfprin PO 10/09/18 13:19 Not Given ONETIME ONE Aspirin 81 mg 10/09/18 13:25 10/09/18 13:31 Aspirin PO 10/09/18 13:26 81 mg ONETIME ONE Administration Aspirin 162 mg 10/09/18 13:26 10/09/18 13:31 Aspirin PO 10/09/18 13:27 162 mg ONETIME ONE Administration Al Hydroxide/Mg Hydroxide 15 0 ml 10/09/18 13:14 10/09/18 13:21 ml/ Lidocaine HCl 15 ml PO 10/09/18 13:15 30 ml ONETIME ONE Administration Sodium Chloride 1,000 mls @ 999 mls/hr 10/09/18 13:55 10/09/18 14:13 Normal Saline IV 10/09/18 14:55 999 mls/hr .BOLUS ONE Administration Insulin Human Regular 7 unit 10/09/18 13:59 10/09/18 14:19 Humulin R SUBCUT 10/09/18 14:00 7 unit ONETIME STA Administration Ketorolac Tromethamine 30 mg 10/09/18 13:55 10/09/18 14:16 Toradol IVPUSH 10/09/18 13:56 30 mg ONETIME ONE Administration Ondansetron HCl 8 mg 10/09/18 13:14 10/09/18 13:19 Zofran Odt PO 10/09/18 13:15 8 mg ONETIME ONE Administration Pantoprazole Sodium 40 mg 10/09/18 13:55 10/09/18 14:15 Protonix Iv IVPUSH 10/09/18 13:56 40 mg ONETIME ONE Administration Sodium Chloride 10 ml 10/09/18 14:12 10/09/18 14:12 Saline Flush FLUSH 10 ml ASDIRECTED PRN Administration IV Use Departure - Departure Time of Disposition: 15:39 Disposition: Home, Self-Care 01 Condition: Good Clinical Impression: Hammer toe of right foot, Cellulitis of toe of right foot, Pleurisy without effusion, IDDM (insulin dependent diabetes mellitus) Prescriptions: Amoxicillin/Potassium Clav [Augmentin 875-125 Tablet] 1 each PO BID #20 tablet Clotrimazole [Lotrimin AF] 0.01 gm TOP BID #1 tube Instructions: Pleurisy, [id number] Referrals: Horacio Moran MD [Primary Care Provider] - Rene Jurado MD [Physician] - Forms: ED Department Discharge, ED Return to Work/School Form Additional Instructions: Please take augmentin as recommended, Motrin for pain, 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 Please f/u with your PMD in one week to get your Insulin Meds adjusted. F/U with GI for CA screening. Apply Lotrimin cream twice to both feet. Please come back if your symptoms get worse acutely - My Orders Last 24 Hours: My Active Orders 10/09/18 13:14 EKG Documentation Completion [RC] STAT EKG 12 Lead [EK] Routine 10/09/18 13:15 EKG Documentation Completion [RC] ASDIRECTED 10/09/18 13:29 CXR [Chest 2V] [CR] Stat 10/09/18 13:40 Toes Second Digit Rt T6 [CR] Stat 10/09/18 17:51 Accu Check [Blood Glucose Check, Bedside] [RC] ONETIME - Assessment/Plan Last 24 Hours: My Active Orders 10/09/18 13:14 EKG Documentation Completion [RC] STAT EKG 12 Lead [EK] Routine 10/09/18 13:15 EKG Documentation Completion [RC] ASDIRECTED 10/09/18 13:29 CXR [Chest 2V] [CR] Stat 10/09/18 13:40 Toes Second Digit Rt T6 [CR] Stat 10/09/18 17:51 Accu Check [Blood Glucose Check, Bedside] [RC] ONETIME
[2018-10-09] MEDS ORDERED: Aspirin 81 MG Tab.Chew PO ONE ×2 (13:25→13:26)
[2018-10-09] MEDS ORDERED: Pantoprazole 40 MG Vial IVPUSH ONE (13:55)
[2018-10-09] MEDS ORDERED: Sodium Chloride 0.9% 1,000 ML IV ONE (13:55)
[2018-10-09] MEDS ORDERED: Ketorolac 30 MG/ML SDV IVPUSH ONE (13:55)
[2018-10-09] MEDS ORDERED: Insulin Regular, Human 100 Units/ML 3 ML Vial SUBCUT STA (13:59)
[2018-10-09] MEDS ORDERED: Sodium Chloride 0.9% 10 ML Syringe FLUSH PRN (14:12)
[2018-10-09 14:26] LABS: HEMOGLOBIN A1C 9.5 % (4.5-6.2)
[2018-10-09] MEDS ORDERED: Amoxicillin/Clavulanate K 875-125 MG Tab PO ONE (15:29)
[2018-10-09 16:00] VITALS: BP 143/70
== END 2018-10-09 15:45 | disposition home or self-care (01) ==
LOC: FB.ED 13:06
DX: L03.031 Cellulitis of right toe (principal); R09.1 Pleurisy; K29.70 Gastritis, unspecified, without bleeding; M79.652 Pain in left thigh; G89.29 Other chronic pain; I10 Essential (primary) hypertension; E11.65 Type 2 diabetes mellitus with hyperglycemia; E78.00 Pure hypercholesterolemia, unspecified; F32.9 Major depressive disorder, single episode, unspecified; F41.9 Anxiety disorder, unspecified; E03.9 Hypothyroidism, unspecified; E11.42 Type 2 diabetes mellitus with diabetic polyneuropathy; K21.9 Gastro-esophageal reflux disease without esophagitis; Z79.4 Long term (current) use of insulin; Z79.82 Long term (current) use of aspirin; Z79.2 Long term (current) use of antibiotics; Z79.899 Other long term (current) drug therapy; Z90.710 Acquired absence of both cervix and uterus; Z90.89 Acquired absence of other organs; Z98.890 Other specified postprocedural states
CPT/HCPCS: 36415; 71046; 73660; 80048; 81001; 82150; 82962; 83036; 84484; 85025; 85379; 93005; 96361; 96372; 96374; 96375; 99285; A9270; C9113; J1815; J1885; J7030

== ENCOUNTER 2019-07-30 08:15 | Emergency (ER) | payer BC, MEDICAID ==
[2019-07-30] MEDS ORDERED: Lidocaine 1% 20 ML MDV INJECT ONE (08:16)
--- NOTE | 2019-07-30 08:49 | EDM.PDOC ---
ED HPI GENERAL MEDICAL PROBLEM - General Chief Complaint: Skin Complaint Stated Complaint: BOIL,HIGH BLOOD SUGAR Time Seen by Provider: 07/30/19 08:45 Source of Information: Reports: Patient History Limitations: Reports: No Limitations - History of Present Illness INITIAL COMMENTS - FREE TEXT/NARRATIVE: 59-year-old female who reports on of this last week she developed swelling, redness and discomfort in her right groin area. This has progressively become more painful and more swollen and more red over time. She reports the pain in the area and now is a 9/10. It is a sharp, stinging and throbbing pain. There is no radiation of the pain. She has had no abdominal pain. She has had no vomiting. She had some mild nausea today. Her blood sugar has been more elevated than usual (it was 185 last night and 196 this morning). She has been eating and drinking normally. No dysuria or hematuria. There are no other associated signs or symptoms. There are no other modifying factors. Onset: Other (3 days ago) Duration: Getting Worse Location: Reports: Lower Extremity, Right (Right groin area) Quality: Reports: Sharp, Throbbing Severity: Moderate (to severe) Improves with: Reports: Rest Worsens with: Reports: Other (Palpation) Context: Reports: Other (As above) Associated Symptoms: Reports: Nausea/Vomiting Treatments ORDER CALLER: Reports: Other (see below) (Nothing) - Related Data Allergies Allergy/AdvReac Type Severity Reaction Status Date / Time adhesive Allergy Rash Verified 07/30/19 08:40 Home Meds: Home Meds Aspirin [Adult Low Dose Aspirin EC] 81 mg PO DAILY 09/16/14 [History] DULoxetine [Cymbalta] 60 mg PO DAILY 12/11/15 [History] Insulin Aspart [Novolog Flexpen] 3 - 60 unit SQ ASDIRECTED 12/11/15 [History] Insulin Glargine,Hum.Rec.Anlog [Toujeo Solostar] 90 unit SQ BEDTIME 12/11/15 [ History] Fluticasone/Salmeterol [Advair Diskus 100-50] 1 puff INH BID PRN 02/10/17 [ History] Gabapentin [Gralise] 200 mg PO DAILY 02/10/17 [History] Gabapentin [Neurontin] 900 mg PO BEDTIME 05/24/17 [History] Omeprazole Magnesium [Prilosec Otc] 20 mg PO DAILY 02/10/17 [History] buPROPion [Wellbutrin XL] 300 mg PO DAILY 02/10/17 [History] Meloxicam 7.5 mg PO DAILY 08/29/18 [History] Oxybutynin Chloride [Ditropan Xl] 20 mg PO DAILY 08/29/18 [History] Simvastatin 20 mg PO BEDTIME 08/29/18 [History] metFORMIN HCl [Metformin HCl] 1,000 mg PO BIDMEALS 08/29/18 [History] rOPINIRole [Requip] 2 mg PO BEDTIME 08/29/18 [History] traZODone HCl [Trazodone HCl] 50 mg PO BEDTIME 08/29/18 [History] Clotrimazole [Lotrimin AF] 0.01 gm TOP BID #1 tube 10/09/18 [Rx] Albuterol [Proventil HFA] 1 - 2 puff INH Q4H PRN 10/19/18 [History] Melatonin 10 mg PO BEDTIME 10/19/18 [History] Propranolol [Inderal] 40 mg PO DAILY PRN 10/19/18 [History] Cephalexin [Keflex] 750 mg PO TID 7 Days #63 capsule 07/30/19 [Rx] Hydrocodone/Acetaminophen [Eden 5-325 Tablet] 1 - 2 tab PO Q6H PRN #10 tablet 07/30/19 [Rx] Past Medical History HEENT History: Reports: Cataract, Impaired Vision Cardiovascular History: Reports: High Cholesterol, Hypertension Gastrointestinal History: Reports: Gastritis, GERD 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 WHOLESALE History: Reports: Other (See Below) Other MANAGER WHOLESALE History: VULVULAR / VAGINAL LESIONS REMOVED Musculoskeletal History: Reports: Fibromyalgia, Other (See Below) Other Musculoskeletal History: MYALGIA AND MYOSITIS Neurological History: Reports: Migraines, Neuropathy, Peripheral Psychiatric History: Reports: Anxiety, Depression Endocrine/Metabolic History: Reports: Diabetes, Type II, Hypothyroidism, Obesity /BMI 30+ Oncologic (Cancer) History: Reports: Cervix - Infectious Disease History Infectious Disease History: Reports: Chicken Pox, Shingles - Past Surgical History HEENT Surgical History: Reports: Cataract Surgery, Oral Surgery, Tonsillectomy Other HEENT Surgeries/Procedures: BILATERAL CATARACT SURGERY GI Surgical History: Reports: Appendectomy, Colonoscopy, EGD Female Surgical History: Reports: Hysterectomy, Other (See Below) Other Female Surgeries/Procedures: URETHRAL SUSPENPENSION, BLADDER REPAIR Musculoskeletal Surgical History: Reports: Carpal Tunnel (Bilateral) Social & Family History - Tobacco Use Smoking Status *Q: Current Every Day Smoker - Caffeine Use Caffeine Use: Reports: Soda - Alcohol Use Alcohol Use History: Yes Alcohol Use Frequency: Rarely - Living Situation & Occupation Living situation: Reports: with Significant Other (She has a fianc.) Occupation: Disabled (But she is also employed part-time at [employer].) ED ROS GENERAL - Review of Systems Review Of Systems: See Below Constitutional: Reports: No Symptoms HEENT: Reports: No Symptoms Respiratory: Reports: No Symptoms Cardiovascular: Reports: No Symptoms GI/Abdominal: Reports: Nausea : Reports: No Symptoms Musculoskeletal: Reports: No Symptoms Skin: Reports: Lumps (Erythematous and fluctuant area and right groin) Neurological: Reports: No Symptoms Hematologic/Lymphatic: Reports: No Symptoms Immunologic: Reports: No Symptoms ED EXAM, SKIN/RASH Exam: See Below Exam Limited By: No Limitations General Appearance: Alert, WD/WN, Moderate Distress, Other (Nontoxic appearing) Eye Exam: Bilateral Eye: EOMI, Normal Inspection, PERRL Ears: Normal External Exam, Hearing Grossly Normal Nose: Normal Inspection, Normal Mucosa, No Blood Throat/Mouth: Normal Inspection, Normal Lips, Normal Oropharynx, Normal Voice, No Airway Compromise Head: Atraumatic, Normocephalic Neck: Normal Inspection, Supple, Non-Tender, Full Range of Motion Respiratory/Chest: No Respiratory Distress, Lungs Clear, Normal Breath Sounds, No Accessory Muscle Use, Chest Non-Tender Cardiovascular: Normal Peripheral Pulses, Regular Rate, Rhythm, No Murmur Peripheral Pulses: 2+: Radial (L), Radial (R), Dorsalis Pedis (L), Dorsalis Pedis (R) GI/Abdominal: Normal Bowel Sounds, Soft, Non-Tender, No Mass Back Exam: Normal Inspection, Full Range of Motion Extremities: Normal Range of Motion, Non-Tender, No Pedal Edema, Normal Capillary Refill, Other (Quarter-sized diameter fluctuant area and right groin that is somewhat tender to palpation with redness and increased warmth.) Neurological: Alert, Oriented, CN II-XII Intact, Normal Cognition, No Motor/ Sensory Deficits Skin: Warm, Dry, Intact, Normal Color, No Rash, Other (As above) Location, Skin: Groin (Right) Characteristics: Erythematous Associated features: Warmth, Tenderness, Swelling, Induration (With fluctuance) ED SKIN PROCEDURES - I&D Site: Right groin Skin Prep: Providone-Iodine (Betadine) Local Anesthesia: Lidocaine: 1% Plain Local Anesthetic Volume: Other (9 mL; there was good anesthesia and no complications.) Area Incised With: 11 Blade Drainage: Purulent, Small Amount Probed to Break Up Loculations: Yes Packed With: 1/2 in. Iodoform Sterile Dressing: Adhesive Dressing, 4x4(s) Complications: No Progress/Comments: After informed verbal consent was obtained from the patient, the abscess area was prepped with Betadine and draped and using an 11 blade scalpel a 2 cm incision was made along the Lines of Chary. Pus was expressed and a pair of mosquito hemostat was used to break up the loculations. The abscess cavity was then copiously irrigated with Betadine tinged normal saline. The area was then packed with half-inch iodoform gauze. An appropriate supportive dressing was applied by the nursing staff. The patient tolerated this well. There were no complications. EUNICE Magdaleno was present as radial router operator during the entire procedure. Course - Vital Signs Last Recorded V/S: Last Vital Signs Temp 37.1 C 07/30/19 08:15 Pulse 77 07/30/19 08:15 Resp 18 07/30/19 08:15 BP 153/67 H 07/30/19 08:15 Pulse Ox 97 07/30/19 08:15 - Re-Assessments/Exams Free Text/Narrative Re-Assessment/Exam: 07/30/19 09:25: The patient had a small subcutaneous abscess in her right groin that was I&D and then packed with out form gauze. The patient will be placed on Keflex 750 mg 3 times a day for 7 days. She is to leave the packing in place until Wednesday morning. I have also given the patient a prescription for hydrocodone for moderate to severe pain. She is to watch her blood sugars more closely over the next few days. She is to follow-up with her primary doctor as needed. Precautions and reasons for return to the emergency department were discussed with the patient prior to her discharge. Departure - Departure Time of Disposition: 09:30 Disposition: Home, Self-Care 01 Condition: Good (Improved) Clinical Impression: Diabetes mellitus, type II, insulin dependent, Cellulitis of right groin Subcutaneous abscess Qualifiers: Site of cutaneous abscess: extremity Site of cutaneous abscess of extremity: lower extremity Laterality: right Qualified Code(s): L02.415 - Cutaneous abscess of right lower limb - Discharge Information Prescriptions: Cephalexin [Keflex] 750 mg PO TID 7 Days #63 capsule Hydrocodone/Acetaminophen [Eden 5-325 Tablet] 1 - 2 tab PO Q6H PRN #10 tablet PRN Reason: Moderate to severe pain Instructions: Acetaminophen; Hydrocodone tablets or capsules, Wound Packing, Skin Abscess, [id number], Cellulitis, Adult, [id number], Incision and Drainage, Care After, Cephalexin tablets or capsules Referrals: Gabby Paul PA [Primary Care Provider] - Forms: ED Department Discharge Additional Instructions: You had a small abscess in your right groin that I lanced and drained. I placed packing into the abscess cavity. You should leave this in place until 07/31/2019. You should take the packing out at that time and wash the area with soap and water while in the shower. Apply a dressing over the area following this and you should clean the wound daily in this fashion until the wound has closed over. You may take ibuprofen for your pain as needed. Medication as prescribed (Keflex 250 mg--this is the antibiotic and you should take all, hydrocodone 5/325--use this medication for moderate to severe pain as needed). Follow-up with your primary doctor as needed. Back to the emergency department for marked increase in pain, high fever, vomiting, worsening redness , worsening swelling or concerning sign or symptom.
[2019-07-30 10:29] VITALS: BP 142/67; PULSE 70
== END 2019-07-30 09:50 | disposition home or self-care (01) ==
LOC: FB.ED 08:15
DX: L02.415 Cutaneous abscess of right lower limb (principal); E11.9 Type 2 diabetes mellitus without complications; Z79.4 Long term (current) use of insulin; F17.200 Nicotine dependence, unspecified, uncomplicated; I10 Essential (primary) hypertension; F41.9 Anxiety disorder, unspecified; F32.9 Major depressive disorder, single episode, unspecified; E03.9 Hypothyroidism, unspecified; E66.9 Obesity, unspecified; Z68.30 Body mass index [BMI] 30.0-30.9, adult; Z79.899 Other long term (current) drug therapy; Z79.82 Long term (current) use of aspirin; Z91.09 Other allergy status, other than to drugs and biological substances
CPT/HCPCS: 10061; 99282-25; J2001

== ENCOUNTER 2019-08-01 19:34 | Emergency (ER) | payer MEDICAID ==
--- NOTE | 2019-08-01 19:52 | EDM.PDOC ---
ED HPI GENERAL MEDICAL PROBLEM - General Chief Complaint: Skin Complaint Stated Complaint: LEG INFECTION Time Seen by Provider: 08/01/19 19:45 Source of Information: Reports: Patient, Old Records History Limitations: Reports: No Limitations - History of Present Illness INITIAL COMMENTS - FREE TEXT/NARRATIVE: Blanquita comes in for follow up, notes from July 30 ED note reviewed. His packing from R groin was removed today, but she went to for inspection of reddness and some induration of the wound, worried that the infection was not improving. The provider in determined a medical opinion regarding possible admission for IV antibx and sent her back to the ED. She is currently taking Keflex 500 mg qid. - Related Data Allergies Allergy/AdvReac Type Severity Reaction Status Date / Time adhesive Allergy Rash Verified 07/30/19 08:40 Home Meds: Home Meds Aspirin [Adult Low Dose Aspirin EC] 81 mg PO DAILY 09/16/14 [History] DULoxetine [Cymbalta] 60 mg PO DAILY 12/11/15 [History] Insulin Aspart [Novolog Flexpen] 3 - 60 unit SQ ASDIRECTED 12/11/15 [History] Insulin Glargine,Hum.Rec.Anlog [Toujeo Solostar] 90 unit SQ BEDTIME 12/11/15 [ History] Fluticasone/Salmeterol [Advair Diskus 100-50] 1 puff INH BID PRN 02/10/17 [ History] Gabapentin [Gralise] 200 mg PO DAILY 02/10/17 [History] Gabapentin [Neurontin] 900 mg PO BEDTIME 02/10/17 [History] Omeprazole Magnesium [Prilosec Otc] 20 mg PO DAILY 02/10/17 [History] buPROPion [Wellbutrin XL] 300 mg PO DAILY 02/10/17 [History] Meloxicam 7.5 mg PO DAILY 08/29/18 [History] Oxybutynin Chloride [Ditropan Xl] 20 mg PO DAILY 08/29/18 [History] Simvastatin 20 mg PO BEDTIME 08/29/18 [History] metFORMIN HCl [Metformin HCl] 1,000 mg PO BIDMEALS 08/29/18 [History] rOPINIRole [Requip] 2 mg PO BEDTIME 08/29/18 [History] traZODone HCl [Trazodone HCl] 50 mg PO BEDTIME 08/29/18 [History] Clotrimazole [Lotrimin AF] 0.01 gm TOP BID #1 tube 10/09/18 [Rx] Albuterol [Proventil HFA] 1 - 2 puff INH Q4H PRN 10/19/18 [History] Melatonin 10 mg PO BEDTIME 10/19/18 [History] Propranolol [Inderal] 40 mg PO DAILY PRN 10/19/18 [History] Cephalexin [Keflex] 750 mg PO TID 7 Days #63 capsule 07/30/19 [Rx] Hydrocodone/Acetaminophen [Chavies 5-325 Tablet] 1 - 2 tab PO Q6H PRN #10 tablet 07/30/19 [Rx] Past Medical History HEENT History: Reports: Cataract, Impaired Vision Cardiovascular History: Reports: High Cholesterol, Hypertension Respiratory History: Reports: SOB Gastrointestinal History: Reports: Gastritis, GERD Genitourinary History: Reports: None 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 WORKER History: Reports: Other (See Below) Other TAR POT WORKER History: VULVULAR / VAGINAL LESIONS REMOVED Musculoskeletal History: Reports: Fibromyalgia, Other (See Below) Other Musculoskeletal History: MYALGIA AND MYOSITIS Neurological History: Reports: Migraines, Neuropathy, Peripheral Psychiatric History: Reports: Anxiety, Depression Endocrine/Metabolic History: Reports: Diabetes, Type II, Hypothyroidism, Obesity /BMI 30+ Hematologic History: Reports: None Immunologic History: Reports: None Oncologic (Cancer) History: Reports: Cervix Dermatologic History: Reports: None - Infectious Disease History Infectious Disease History: Reports: Chicken Pox, Shingles - Past Surgical History HEENT Surgical History: Reports: Cataract Surgery, Oral Surgery, Tonsillectomy Other HEENT Surgeries/Procedures: BILATERAL CATARACT SURGERY GI Surgical History: Reports: Appendectomy, Colonoscopy, EGD Female Surgical History: Reports: Hysterectomy, Other (See Below) Other Female Surgeries/Procedures: URETHRAL SUSPENPENSION, BLADDER REPAIR Musculoskeletal Surgical History: Reports: Carpal Tunnel (Bilateral) Social & Family History - Family History Family Medical History: Noncontributory - Caffeine Use Caffeine Use: Reports: Soda - Living Situation & Occupation Living situation: Reports: with Significant Other (She has a fianc.) Occupation: Disabled (But she is also employed part-time at [employer].) ED ROS GENERAL - Review of Systems Review Of Systems: Comprehensive ROS is negative, except as noted in HPI. ED EXAM, SKIN/RASH Exam: See Below Exam Limited By: No Limitations General Appearance: Alert, WD/WN, No Apparent Distress Head: Normocephalic Neck: Normal Inspection, Supple Respiratory/Chest: Lungs Clear Cardiovascular: Regular Rate, Rhythm GI/Abdominal: Normal Bowel Sounds, Soft, Non-Tender, No Organomegaly, No Distention, No Mass (Female) Exam: Normal External Exam Rectal (Female) Exam: Deferred Back Exam: Normal Inspection Extremities: Normal Range of Motion, Non-Tender Neurological: Alert, Oriented, CN II-XII Intact, Normal Cognition, No Motor/ Sensory Deficits Psychiatric: Normal Affect, Normal Mood Skin: Warm, Dry, Wound/Incision (inspection of R groin notes a healing abscess with visible fibrinous exudate at the stab wound, no discharge, and a small amount of induration excentric to the wound. There is also some distal erythema that is nontender. This was demarcated with a surgical pen.) Course - Vital Signs Text/Narrative:: The groin wound was cleaned and redressed. Daily soaks in warm sudsy water is fine. I demarcated the margins of erythema to track progress. I will dispense Bactrim DS bid for a week. She will follow up with PCP. Departure - Departure Time of Disposition: 20:04 Disposition: Home, Self-Care 01 Condition: Fair Clinical Impression: Cellulitis Qualifiers: Site of cellulitis: trunk Site of cellulitis of trunk: groin Qualified Code(s) : L03.314 - Cellulitis of groin - Discharge Information Referrals: Horacio Moran MD [Primary Care Provider] - Forms: ED Department Discharge - Problem List & Annotations (1) Cellulitis of right groin SNOMED Code(s): 77772176 Code(s): L03.314 - CELLULITIS OF GROIN Status: Acute Annotation/Comment: : I added Bactrim DS bid for a week, continue daily wound care, soaks in warm sudsy water are encouraged. - Problem List Review Problem List Initiated/Reviewed/Updated: Yes - Assessment/Plan Plan: Follow up with PCP if needed.
[2019-08-01 20:27] VITALS: BP 136/67; PULSE 74
== END 2019-08-01 20:07 | disposition home or self-care (01) ==
LOC: FB.ED 19:34
DX: L03.314 Cellulitis of groin (principal); E78.00 Pure hypercholesterolemia, unspecified; I10 Essential (primary) hypertension; K21.9 Gastro-esophageal reflux disease without esophagitis; E11.42 Type 2 diabetes mellitus with diabetic polyneuropathy; Z79.899 Other long term (current) drug therapy; Z79.4 Long term (current) use of insulin; Z79.82 Long term (current) use of aspirin
CPT/HCPCS: 87070; 87077; 87186; 87205; 99283

== ENCOUNTER → 2019-08-04 | Outpatient (CLI) | payer MEDICAID ==
--- NOTE | 2019-08-04 11:54 | US ---
INDICATION: Right groin lump. EXTREMITY ULTRASOUND, NONVASCULAR, LIMITED: Multiple ultrasonic images were obtained of the right groin area and revealed a hypoechoic irregular area, somewhat T-shaped in the right groin, which measured approximately 2.4 x 0.9 x 1.32 cm. This may represent a recently drained abscess. There is only minimal blood flow in this area. Little remaining fluid is suggested. IMPRESSION: Small irregular probable fluid collection compatible with a recently drained abscess in the right groin. Report was left on Dr. Freeman voicemail at approximately 1126 hours on 08/04. LAURA
== END ==
LOC: FB.DI 10:49
PROVIDERS: ATTEND Family Medicine
DX: R19.09 Other intra-abdominal and pelvic swelling, mass and lump (principal)
CPT/HCPCS: 76882

== ENCOUNTER 2020-02-13 17:36 | Emergency (ER) | payer MEDICAID ==
--- NOTE | 2020-02-13 17:48 | EDM.PDOC ---
ED HPI GENERAL MEDICAL PROBLEM - General Stated Complaint: HIGH BLOOD SUGAR Time Seen by Provider: 02/13/20 17:46 Source of Information: Reports: Patient History Limitations: Reports: No Limitations - History of Present Illness INITIAL COMMENTS - FREE TEXT/NARRATIVE: 59-year-old female who reports that for about the past week she has had intermittent feelings of aching and pressure across her chest and he were from 2 -5 minutes and seemed to come on both with activity and at rest. She is currently having an episode of this right now and she rates pain as a 3/10. Nothing really seems to bring the pain on. She also reports that for the past few days she has malaise and fatigue and also that her blood sugars have been elevated and was up to 326 this morning and 428 tonight for 4:45 PM. She has felt somewhat as a lightheaded at times. No trouble breathing. Arm, neck or jaw pain. No back pain. No nausea or vomiting. She has been eating and drinking normally. She has had no dysuria or hematuria. No frequency. There are no other associated signs or symptoms. There are no other modifying factors. 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) (Nothing) generalized Pain Score (Numeric/FACES): 5 - Related Data Allergies Allergy/AdvReac Type Severity Reaction Status Date / Time adhesive Allergy Rash Verified 02/13/20 19:19 Home Meds: Home Meds Aspirin [Adult Low Dose Aspirin EC] 81 mg PO DAILY 09/16/14 [History] DULoxetine [Cymbalta] 60 mg PO DAILY 12/11/15 [History] Insulin Glargine,Hum.Rec.Anlog [Noah Hayden] 40 unit SQ BEDTIME 12/11/15 [ History] Omeprazole Magnesium [Prilosec Otc] 20 mg PO DAILY 02/10/17 [History] Oxybutynin Chloride [Ditropan Xl] 20 mg PO DAILY 08/29/18 [History] Simvastatin 20 mg PO BEDTIME 08/29/18 [History] metFORMIN HCl [Metformin HCl] 1,000 mg PO BIDMEALS 08/29/18 [History] Pregabalin [Lyrica] 150 mg PO BID 02/13/20 [History] Zolpidem [Ambien] 5 mg PO BEDTIME PRN 02/13/20 [History] Past Medical History HEENT History: Reports: Cataract, Impaired Vision Cardiovascular History: Reports: High Cholesterol, Hypertension Gastrointestinal History: Reports: Gastritis, GERD [employer] 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 History: Reports: Other (See Below) 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 [employer] 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[employer]CTOR History: VULVULAR / VAGINAL LESIONS REMOVED Musculoskeletal History: Reports: Fibromyalgia, Other (See Below) Other Musculoskeletal History: MYALGIA AND MYOSITIS Neurological History: Reports: Migraines, Neuropathy, Peripheral Psychiatric History: Reports: Anxiety, Depression Endocrine/Metabolic History: Reports: Diabetes, Type II, Hypothyroidism, Obesity /BMI 30+ Oncologic (Cancer) History: Reports: Cervix - Infectious Disease History Infectious Disease History: Reports: Chicken Pox, Shingles - Past Surgical History HEENT Surgical History: Reports: Cataract Surgery, Oral Surgery, Tonsillectomy Other HEENT Surgeries/Procedures: BILATERAL CATARACT SURGERY GI Surgical History: Reports: Appendectomy, Colonoscopy, EGD Female Surgical History: Reports: Hysterectomy, Other (See Below) Other Female Surgeries/Procedures: URETHRAL SUSPENPENSION, BLADDER REPAIR Musculoskeletal Surgical History: Reports: Carpal Tunnel (Bilateral) Social & Family History - Tobacco Use Smoking Status *Q: Current Every Day Smoker - Caffeine Use Caffeine Use: Reports: Soda - Alcohol Use Alcohol Use History: No - Living Situation & Occupation Occupation: Disabled (But she is also employed part-time at [employer].) ED ROS GENERAL - Review of Systems Review Of Systems: See Below Constitutional: Reports: Malaise, Fatigue HEENT: Reports: No Symptoms Respiratory: Reports: No Symptoms Cardiovascular: Reports: Chest Pain, Lightheadedness Endocrine: Reports: High Glucose GI/Abdominal: Reports: No Symptoms : Reports: No Symptoms Musculoskeletal: Reports: No Symptoms Skin: Reports: No Symptoms Neurological: Reports: Dizziness, Headache Hematologic/Lymphatic: Reports: No Symptoms Immunologic: Reports: No Symptoms ED EXAM, GENERAL - Physical Exam Exam: See Below Exam Limited By: No Limitations General Appearance: Alert, WD/WN, Mild Distress, Other (Nontoxic appearing) Eye Exam: Bilateral Eye: EOMI, Normal Inspection, PERRL Ears: Normal External Exam, Hearing Grossly Normal Ear Exam: Bilateral Ear: Auricle Normal Nose: Normal Inspection, Normal Mucosa, No Blood Throat/Mouth: Normal Inspection, Normal Oropharynx, Normal Voice, No Airway Compromise Head: Atraumatic, Normocephalic Neck: Normal Inspection, Supple, Non-Tender, Full Range of Motion Respiratory/Chest: No Respiratory Distress, Lungs Clear, Normal Breath Sounds, No Accessory Muscle Use, Chest Non-Tender Cardiovascular: Normal Peripheral Pulses, Regular Rate, Rhythm, No Murmur Peripheral Pulses: 2+: Radial (L), Radial (R), Dorsalis Pedis (L), Dorsalis Pedis (R) GI/Abdominal: Normal Bowel Sounds, Soft, Non-Tender, No Mass Back Exam: Normal Inspection Extremities: Normal Inspection, Normal Range of Motion, Non-Tender, No Pedal Edema, Normal Capillary Refill Neurological: Alert, Oriented, CN II-XII Intact, Normal Cognition, No Motor/ Sensory Deficits Psychiatric: Normal Affect Skin Exam: Warm, Dry, Intact, Normal Color, No Rash EKG INTERPRETATION EKG Date: 02/13/20 Time: 18:44 Rhythm: NSR Rate (Beats/Min): 82 [place]: Normal P-Wave: Present QRS: Normal ST-T: Normal QT: Normal Comparison: No Change (From EKG performed on 10/09/2018.) Course - Vital Signs Last Recorded V/S: Last Vital Signs Temp 36.3 C 02/13/20 17:40 Pulse 73 02/13/20 21:55 Resp 16 02/13/20 21:32 BP 119/62 02/13/20 21:55 Pulse Ox 94 L 02/13/20 21:32 - Orders/Labs/Meds Orders: Active Orders 24 hr Category Date Time Status Accu Check [Blood Glucose Check, Bedside] [] ONETIME Care 02/13/20 20:16 Active Accu Check [Blood Glucose Check, Bedside] [] ONETIME Care 02/13/20 21:42 Active EKG Documentation Completion [] ASDIRECTED Care 02/13/20 18:18 Active Chest 2V [CR] Stat Exams 02/13/20 18:19 Taken Nitroglycerin [Nitrostat] Med 02/13/20 19:01 Active 0.4 mg SL Q5M PRN Sodium Chloride 0.9% [Saline Flush] Med 02/13/20 18:17 Active 10 ml FLUSH ASDIRECTED PRN Peripheral IV Insertion Adult [OM.PC] Routine Oth 02/13/20 18:17 Ordered EKG 12 Lead [EK] Routine Ther 02/13/20 18:17 Ordered Medication Orders Nitroglycerin (Nitrostat) 0.4 mg SL Q5M PRN PRN Reason: Chest Pain Sodium Chloride (Saline Flush) 10 ml FLUSH ASDIRECTED PRN PRN Reason: Keep Vein Open Labs: Laboratory Tests 02/13/20 02/13/20 02/13/20 Range/Units 18:15 18:28 18:28 WBC 18.1 H (4.5-12.0) X10-3/uL RBC 5.23 H (3.23-5.20) x10(6)uL Hgb 15.4 (11.5-15.5) g/dL Hct 47.3 (30.0-51.3) % MCV 90.4 (80-96) fL MCH 29.4 (27.7-33.6) pg MCHC 32.5 (32.2-35.4) g/dL RDW 13.2 (11.5-15.5) % Plt Count 408 H (125-369) X10(3)uL MPV 7.7 (7.4-10.4) fL Add Manual Diff Yes Neutrophils % (Manual) 70 (46-82) % Band Neutrophils % 1 (0-6) % Lymphocytes % (Manual) 22 (13-37) % Monocytes % (Manual) 6 (4-12) % Eosinophils % (Manual) 1 (0-5) % Sodium 134 L (135-145) mmol/L Potassium 4.3 (3.5-5.3) mmol/L Chloride 97 L (100-110) mmol/L Carbon Dioxide 26 (21-32) mmol/L BUN 19 H (7-18) mg/dL Creatinine 1.0 (0.55-1.02) mg/dL Est Cr Clr Drug Dosing TNP Estimated GFR (MDRD) 57 L (>60) BUN/Creatinine Ratio 19.0 (9-20) Glucose 387 H (80-116) mg/dL Calcium 9.4 (8.6-10.2) mg/dL Magnesium 1.5 L (1.8-2.5) mg/dL Total Bilirubin 0.4 (0.1-1.3) mg/dL AST 7 D (5-25) IU/L ALT 13 D (12-36) U/L Alkaline Phosphatase 95 (56-112) IU/L Troponin I (4.0-60.3) pg/mL C-Reactive Protein (0.5-0.9) mg/dL Total Protein 7.4 (6.0-8.0) g/dL Albumin 3.9 (3.5-5.2) g/dL Globulin 3.5 g/dL Albumin/Globulin Ratio 1.1 Urine Color Yellow (YELLOW) Urine Appearance Clear (CLEAR) Urine pH 5.0 (5.0-6.5) Ur Specific Mallory 1.015 (1.010-1.025) Urine Protein Negative (NEGATIVE) mg/dL Urine Glucose (UA) >1000 H (NORMAL) mg/dL Urine Ketones Negative (NEGATIVE) mg/dL Urine Occult Blood Negative (NEGATIVE) Urine Nitrite Negative (NEGATIVE) Urine Bilirubin Negative (NEGATIVE) Urine Urobilinogen Normal (NEGATIVE) mg/dL Ur Leukocyte Esterase Negative (NEGATIVE) Urine RBC Not seen (0-5) Urine WBC 0-5 (0-5) Ur Squamous Epith Cells Few H (NS,R,O) Urine Bacteria Few H (NS) 02/13/20 02/13/20 Range/Units 18:28 21:00 WBC (4.5-12.0) X10-3/uL RBC (3.23-5.20) x10(6)uL Hgb (11.5-15.5) g/dL Hct (30.0-51.3) % MCV (80-96) fL MCH (27.7-33.6) pg MCHC (32.2-35.4) g/dL RDW (11.5-15.5) % Plt Count (125-369) X10(3)uL MPV (7.4-10.4) fL Add Manual Diff Neutrophils % (Manual) (46-82) % Band Neutrophils % (0-6) % Lymphocytes % (Manual) (13-37) % Monocytes % (Manual) (4-12) % Eosinophils % (Manual) (0-5) % Sodium (135-145) mmol/L Potassium (3.5-5.3) mmol/L Chloride (100-110) mmol/L Carbon Dioxide (21-32) mmol/L BUN (7-18) mg/dL Creatinine (0.55-1.02) mg/dL Est Cr Clr Drug Dosing Estimated GFR (MDRD) (>60) BUN/Creatinine Ratio (9-20) Glucose (80-116) mg/dL Calcium (8.6-10.2) mg/dL Magnesium (1.8-2.5) mg/dL Total Bilirubin (0.1-1.3) mg/dL AST (5-25) IU/L ALT (12-36) U/L Alkaline Phosphatase (56-112) IU/L Troponin I 4.7 5.3 (4.0-60.3) pg/mL C-Reactive Protein 0.5 (0.5-0.9) mg/dL Total Protein (6.0-8.0) g/dL Albumin (3.5-5.2) g/dL Globulin g/dL Albumin/Globulin Ratio Urine Color (YELLOW) Urine Appearance (CLEAR) Urine pH (5.0-6.5) Ur Specific Mallory (1.010-1.025) Urine Protein (NEGATIVE) mg/dL Urine Glucose (UA) (NORMAL) mg/dL Urine Ketones (NEGATIVE) mg/dL Urine Occult Blood (NEGATIVE) Urine Nitrite (NEGATIVE) Urine Bilirubin (NEGATIVE) Urine Urobilinogen (NEGATIVE) mg/dL Ur Leukocyte Esterase (NEGATIVE) Urine RBC (0-5) Urine WBC (0-5) Ur Squamous Epith Cells (NS,R,O) Urine Bacteria (NS) Meds: Medications Generic Name Dose Route Start Last Admin Trade Name Freq PRN Reason Stop Dose Admin Nitroglycerin 0.4 mg 02/13/20 19:01 Nitrostat SL Q5M PRN Chest Pain Sodium Chloride 10 ml 02/13/20 18:17 Saline Flush FLUSH ASDIRECTED PRN Keep Vein Open Discontinued Medications Generic Name Dose Route Start Last Admin Trade Name Freq PRN Reason Stop Dose Admin Aspirin 324 mg 02/13/20 19:01 02/13/20 19:21 Aspirin PO 02/13/20 19:02 324 mg ONETIME ONE Administration Aspirin 243 mg 02/13/20 19:21 02/13/20 19:23 Aspirin PO 02/13/20 19:22 Not Given ONETIME ONE Sodium Chloride 1,000 mls @ 999 mls/hr 02/13/20 18:19 02/13/20 19:15 Normal Saline IV 02/13/20 19:19 999 mls/hr .BOLUS ONE Administration - Radiology Interpretation Free Text/Narrative:: Chest x-ray PA and lateral showed no acute disease. - Re-Assessments/Exams Free Text/Narrative Re-Assessment/Exam: 02/13/20 19:45: Repeat blood sugar was 268. The patient is chest pain/ discomfort free. She is resting comfortably. She has remained vitally and neurologically stable. Her white blood cell count is elevated but the remainder of her labs are reassuring with the glucose being only 328. Her EKG shows no current of injury or ischemia and and is unchanged from her previous EKG. I will repeat her troponin at the 3 hour level. She feels much better and is essentially asymptomatic now. The patient is in agreement with this plan. 02/13/20 21:45: Repeat blood sugar was 248. The patient is still chest discomfort free. She has remained vitally and neurologically stable. I am awaiting the repeat troponin. 02/13/20 21:55: The repeat troponin was normal. She has received a liter bolus of normal saline and she no longer feels weak or dizzy and she has had no chest pain for the past few hours. She has been ambulatory without any problems. I am unsure why she has the leukocytosis and I am also unsure of the etiology of her chest pain. With negative troponins over time and no chest pain now and reassuring labs otherwise, I feel that she is stable for discharge. She will need follow-up with your provider this week for readjustment of her medication and for recheck. Precautions and reasons for return to the emergency department were discussed with the patient while she was in the emergency department prior to her discharge and were also detailed in her discharge instructions. Departure - Departure Time of Disposition: 22:05 Disposition: Home, Self-Care 01 Condition: Good (Improved) Clinical Impression: Dehydration, moderate, Poorly controlled type 2 diabetes mellitus Chest pain Qualifiers: Chest pain type: unspecified Qualified Code(s): R07.9 - Chest pain, unspecified Leukocytosis, unspecified Qualifiers: Leukocytosis type: unspecified Qualified Code(s): D72.829 - Elevated white blood cell count, unspecified - Discharge Information Instructions: Dehydration, Adult, [id number], Nonspecific Chest Pain, Adult, [id number], Type 2 Diabetes Mellitus, Self Care, Adult, [id number] Referrals: Horacio Moran MD [Primary Care Provider] - Forms: ED Department Discharge Additional Instructions: Your blood sugars are not being well controlled. He did appear to be dehydrated today. Your urine test and chest x-ray were normal. He did have an elevated white bloodsoaked count but I am unsure why. I am unsure of the cause of your chest pain. But your heart enzyme tests were negative 2 and your EKG showed no evidence of a heart attack. There is no source or evidence of infection. Your glucose monitor at home appears to be off. It was reading 100 greater than hour glucose testing machine. Rest. Increase your fluid intake. You need to follow- up with your primary provider this week for a recheck and you may need further adjustment of your diabetes medications. Back to the emergency department for unrelenting vomiting, uncontrolled/high blood sugars, fever, trouble breathing worsening chest pain or any other concerning sign or symptom. Sepsis Event Note - Focused Exam Vital Signs: Vital Signs Temp Pulse Resp BP Pulse Ox 02/13/20 21:55 73 119/62 02/13/20 21:32 83 16 131/68 94 L 02/13/20 21:15 85 100/85 02/13/20 20:30 82 20 147/69 H 97 02/13/20 20:00 75 18 135/59 L 92 L 02/13/20 19:45 74 19 132/62 91 L 02/13/20 19:30 76 18 119/53 L 93 L 02/13/20 19:15 86 19 124/85 94 L 02/13/20 19:00 89 19 116/63 94 L 02/13/20 18:45 89 15 153/81 H 96 02/13/20 17:40 36.3 C 96 20 136/66 97 Date Exam was Performed: 02/13/20 Time Exam was Performed: 22:26 - My Orders Last 24 Hours: My Active Orders 02/13/20 18:17 Sodium Chloride 0.9% [Saline Flush] 10 ml FLUSH ASDIRECTED PRN Peripheral IV Insertion Adult [OM.PC] Routine EKG 12 Lead [EK] Routine 02/13/20 18:18 EKG Documentation Completion [RC] ASDIRECTED 02/13/20 18:19 Chest 2V [CR] Stat 02/13/20 19:01 Nitroglycerin [Nitrostat] 0.4 mg SL Q5M PRN 02/13/20 20:16 Accu Check [Blood Glucose Check, Bedside] [RC] ONETIME 02/13/20 21:42 Accu Check [Blood Glucose Check, Bedside] [RC] ONETIME - Assessment/Plan Last 24 Hours: My Active Orders 02/13/20 18:17 Sodium Chloride 0.9% [Saline Flush] 10 ml FLUSH ASDIRECTED PRN Peripheral IV Insertion Adult [OM.PC] Routine EKG 12 Lead [EK] Routine 02/13/20 18:18 EKG Documentation Completion [RC] ASDIRECTED 02/13/20 18:19 Chest 2V [CR] Stat 02/13/20 19:01 Nitroglycerin [Nitrostat] 0.4 mg SL Q5M PRN 02/13/20 20:16 Accu Check [Blood Glucose Check, Bedside] [RC] ONETIME 02/13/20 21:42 Accu Check [Blood Glucose Check, Bedside] [RC] ONETIME
[2020-02-13] MEDS ORDERED: Sodium Chloride 0.9% 10 ML Syringe FLUSH PRN (18:17)
[2020-02-13] MEDS ORDERED: Sodium Chloride 0.9% 1,000 ML IV ONE (18:19)
[2020-02-13] MEDS ORDERED: Aspirin 81 MG Tab.Chew PO ONE ×2 (19:01→19:21)
[2020-02-13] MEDS ORDERED: Nitroglycerin 0.4 MG Tab.SL SL PRN (19:01)
[2020-02-13 21:56] VITALS: BP 119/62; PULSE 73
--- NOTE | 2020-02-14 10:34 | CR ---
INDICATION: Chest pain. CHEST, 2 VIEWS: Frontal and lateral views of the chest were obtained 02/13/20 and compared with 10/09/18 and 06/04/16. The heart remains normal in size and shape. Mediastinum was essentially unremarkable. There are some hypertrophic degenerative changes off the vertebral bodies, most prominently right laterally in the [id number] thoracic spine. Pulmonary markings are similar to the previous examination without a definite active infiltrate or effusion. IMPRESSION: No acute process. MTDD
== END 2020-02-13 22:12 | disposition home or self-care (01) ==
LOC: FB.ED 17:36
DX: R07.89 Other chest pain (principal); E86.0 Dehydration; E11.65 Type 2 diabetes mellitus with hyperglycemia; D72.829 Elevated white blood cell count, unspecified; E78.00 Pure hypercholesterolemia, unspecified; I10 Essential (primary) hypertension; K21.9 Gastro-esophageal reflux disease without esophagitis; G43.909 Migraine, unspecified, not intractable, without status migrainosus; E11.42 Type 2 diabetes mellitus with diabetic polyneuropathy; F32.9 Major depressive disorder, single episode, unspecified; F41.9 Anxiety disorder, unspecified; E03.9 Hypothyroidism, unspecified; E66.9 Obesity, unspecified; Z90.89 Acquired absence of other organs; Z90.710 Acquired absence of both cervix and uterus; F17.200 Nicotine dependence, unspecified, uncomplicated; Z88.8 Allergy status to other drugs, medicaments and biological substances; Z79.4 Long term (current) use of insulin; Z79.899 Other long term (current) drug therapy; Z79.82 Long term (current) use of aspirin; Z68.30 Body mass index [BMI] 30.0-30.9, adult
CPT/HCPCS: 36415; 71046; 80053; 81001; 82962; 83735; 84484; 85025; 86140; 93005; 96360; 99285; A9270; J7030

== ENCOUNTER 2020-12-15 12:16 | Emergency (ER) | payer MEDICAID ==
[2020-12-15] MEDS ORDERED: Sodium Chloride 0.9% 10 ML Syringe FLUSH PRN (12:36)
[2020-12-15] MEDS ORDERED: Meclizine 25 MG Tab PO ONE (12:36)
[2020-12-15] MEDS ORDERED: Sodium Chloride 0.9% 1,000 ML IV ONE (12:36)
--- NOTE | 2020-12-15 12:43 | EDM.PDOC ---
ED HPI GENERAL MEDICAL PROBLEM - General Chief Complaint: General Stated Complaint: DIZZINESS Time Seen by Provider: 12/15/20 12:37 Source of Information: Reports: Patient History Limitations: Reports: No Limitations - History of Present Illness INITIAL COMMENTS - FREE TEXT/NARRATIVE: Presents with dizziness since 929 today, described as a spinning sensation exacerbated with head movement. She also states she "just doesn't feel right," but is unable to elaborate further. Denies headache, N/V, chest pain, SOB, URI sx, fevers, or recent COVID vaccine. Patient did have LUQ abdominal pain yesterday, but this resolved. Denies prior h/o CAD, TIA, or CVA. Onset: Today Duration: Hour(s): (3) Severity: Moderate ABDOMEN Pain Score (Numeric/FACES): 4 - Related Data Allergies Allergy/AdvReac Type Severity Reaction Status Date / Time adhesive Allergy Rash Verified 12/15/20 12:35 Home Meds: Home Meds Aspirin [Adult Low Dose Aspirin EC] 81 mg PO DAILY 09/16/14 [History] DULoxetine [Cymbalta] 60 mg PO DAILY 12/11/15 [History] Omeprazole Magnesium [Prilosec Otc] 20 mg PO DAILY 02/10/17 [History] Oxybutynin Chloride [Ditropan Xl] 20 mg PO DAILY 08/29/18 [History] Simvastatin 20 mg PO BEDTIME 08/29/18 [History] metFORMIN HCl [Metformin HCl] 1,000 mg PO BIDMEALS 08/29/18 [History] Pregabalin [Lyrica] 150 mg PO BID 02/13/20 [History] Zolpidem [Ambien] 5 mg PO BEDTIME PRN 02/13/20 [History] Insulin Glarg,Human.Rec.Analog [Lantus Solostar] 50 units SQ DAILY 12/15/20 [History] Meclizine HCl 25 mg PO Q6H PRN #30 tablet 12/15/20 [Rx] Past Medical History HEENT History: Reports: Cataract, Impaired Vision Cardiovascular History: Reports: High Cholesterol, Hypertension Respiratory History: Reports: SOB Gastrointestinal History: Reports: Gastritis, GERD Genitourinary History: Reports: None 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: Other (See Below) Other DYE RANGE OPERATOR CLOTH History: VULVULAR / VAGINAL LESIONS REMOVED Musculoskeletal History: Reports: Fibromyalgia, Other (See Below) Other Musculoskeletal History: MYALGIA AND MYOSITIS Neurological History: Reports: Migraines, Neuropathy, Peripheral Psychiatric History: Reports: Anxiety, Depression Endocrine/Metabolic History: Reports: Diabetes, Type II, Hypothyroidism, Obesity/BMI 30+ Hematologic History: Reports: None Immunologic History: Reports: None Oncologic (Cancer) History: Reports: Cervix Dermatologic History: Reports: None - Infectious Disease History Infectious Disease History: Reports: Chicken Pox, Shingles - Past Surgical History HEENT Surgical History: Reports: Cataract Surgery, Oral Surgery, Tonsillectomy Other HEENT Surgeries/Procedures: BILATERAL CATARACT SURGERY GI Surgical History: Reports: Appendectomy, Colonoscopy, EGD Female Surgical History: Reports: Hysterectomy, Other (See Below) Other Female Surgeries/Procedures: URETHRAL SUSPENPENSION, BLADDER REPAIR Musculoskeletal Surgical History: Reports: Carpal Tunnel (Bilateral) Social & Family History - Family History Family Medical History: No Pertinent Family History - Caffeine Use Caffeine Use: Reports: Soda - Alcohol Use Alcohol Use History: No - Living Situation & Occupation Living situation: Reports: with Significant Other (She has a fianc.) Occupation: Disabled (But she is also employed part-time at [employer].) ED ROS GENERAL - Review of Systems Review Of Systems: Comprehensive ROS is negative, except as noted in HPI. ED EXAM, GENERAL - Physical Exam Exam: See Below Exam Limited By: No Limitations General Appearance: Alert, WD/WN, No Apparent Distress Eye Exam: Bilateral Eye: EOMI, PERRL (No nystagmus) Ear Exam: Bilateral Ear: TM normal Nose: Normal Inspection Throat/Mouth: No Airway Compromise Head: Atraumatic, Normocephalic Neck: Full Range of Motion Respiratory/Chest: No Respiratory Distress, Lungs Clear, Normal Breath Sounds Cardiovascular: Regular Rate, Rhythm, No Murmur GI/Abdominal: Normal Bowel Sounds, Soft, Non-Tender, No Distention Back Exam: Full Range of Motion Extremities: Normal Inspection, Normal Range of Motion, No Pedal Edema Neurological: Alert, Oriented, CN II-XII Intact, No Motor/Sensory Deficits, Other (Normal finger to nose exam) Psychiatric: Normal Affect, Normal Mood Skin Exam: Warm, Dry, Intact #1 Interpretation EKG Date: 12/15/20 Time: 12:39 Rhythm: NSR Rate (Beats/Min): 63 [place]: Normal P-Wave: Present QRS: Normal ST-T: Normal QT: Normal Comparison: No Change (02/13/2020) Course - Vital Signs Last Recorded V/S: Last Vital Signs Temp 36.8 C 12/15/20 12:25 Pulse 67 12/15/20 13:10 Resp 16 12/15/20 13:10 BP 151/79 H 12/15/20 13:10 Pulse Ox 97 12/15/20 13:10 - Orders/Labs/Meds Orders: Active Orders 24 hr Category Date Time Status EKG Documentation Completion [RC] ASDIRECTED Care 12/15/20 12:36 Active Head wo Cont [CT] Stat Exams 12/15/20 12:37 Taken Sodium Chloride 0.9% [Saline Flush] Med 12/15/20 12:36 Active 10 ml FLUSH ASDIRECTED PRN Saline Lock Insert [OM.PC] Routine Oth 12/15/20 12:36 Ordered EKG 12 Lead [EK] Stat Ther 12/15/20 12:35 Ordered Medication Orders Sodium Chloride (Sodium Chloride 0.9% 10 Ml Syringe) 10 ml FLUSH ASDIRECTED PRN PRN Reason: Keep Vein Open Last Admin: 12/15/20 12:50 Dose: 10 ml Documented by: CAN Labs: Laboratory Tests 12/15/20 12/15/20 12/15/20 Range/Units 12:45 12:47 12:47 WBC 13.1 H (3.0-10.3) x10-3/uL RBC 4.78 (3.60-5.20) x10(6)uL Hgb 14.1 (11.4-15.5) g/dL Hct 42.8 (34.2-48.2) % MCV 89.6 (76.7-100.5) fL MCH 29.6 (23.9-33.9) pg MCHC 33.0 (31.9-34.8) g/dL RDW 14.8 (12.3-16.5) % Plt Count 358 (151-488) x10(3)uL MPV 7.7 (7.1-12.4) fL Neut % (Auto) 65.8 (30.8-76.2) % Lymph % (Auto) 26.0 (18.4-52.1) % [place] % (Auto) 6.0 (4.4-15.7) % Eos % (Auto) 1.5 (0.6-8.1) % Baso % (Auto) 0.7 (0.2-1.5) % Neut # (Auto) 8.6 H (1.5-6.3) x10-3/uL Lymph # (Auto) 3.4 (1.0-4.4) x10-3/uL [place] # (Auto) 0.8 (0.3-1.0) x10-3/uL Eos # (Auto) 0.2 (0.0-0.8) x10-3/uL Baso # (Auto) 0.1 (0.0-0.1) x10-3/uL Sodium 142 (135-145) mmol/L Potassium 4.4 (3.5-5.3) mmol/L Chloride 103 D (100-110) mmol/L Carbon Dioxide 29 (21-32) mmol/L BUN 17 (7-18) mg/dL Creatinine 0.8 (0.55-1.02) mg/dL Est Cr Clr Drug Dosing 68.97 mL/min Estimated GFR (MDRD) > 60 (>60) BUN/Creatinine Ratio 21.3 H (9-20) Glucose 117 H D (80-116) mg/dL Calcium 9.6 (8.6-10.2) mg/dL Total Bilirubin 0.4 (0.1-1.3) mg/dL AST 13 D (5-25) IU/L ALT 17 D (12-36) U/L Alkaline Phosphatase 85 (56-112) IU/L Troponin I (4.0-60.3) pg/mL Total Protein 7.1 (6.0-8.0) g/dL Albumin 3.5 (3.5-5.2) g/dL Globulin 3.6 g/dL Albumin/Globulin Ratio 1.0 Urine Color Yellow (YELLOW) Urine Appearance Slightly cloudy (CLEAR) Urine pH 6.5 (5.0-6.5) Ur Specific [place] 1.010 (1.010-1.025) Urine Protein Negative (NEGATIVE) mg/dL Urine Glucose (UA) Normal (NORMAL) mg/dL Urine Ketones Negative (NEGATIVE) mg/dL Urine Occult Blood Negative (NEGATIVE) Urine Nitrite Negative (NEGATIVE) Urine Bilirubin Negative (NEGATIVE) Urine Urobilinogen Normal (NEGATIVE) mg/dL Ur Leukocyte Esterase Negative (NEGATIVE) Urine RBC 0-5 (0-5) Urine WBC 0-5 (0-5) Ur Squamous Epith Cells Occasional (NS,R,O) Urine Bacteria Few H (NS) 12/15/20 Range/Units 12:47 WBC (3.0-10.3) x10-3/uL RBC (3.60-5.20) x10(6)uL Hgb (11.4-15.5) g/dL Hct (34.2-48.2) % MCV (76.7-100.5) fL MCH (23.9-33.9) pg MCHC (31.9-34.8) g/dL RDW (12.3-16.5) % Plt Count (151-488) x10(3)uL MPV (7.1-12.4) fL Neut % (Auto) (30.8-76.2) % Lymph % (Auto) (18.4-52.1) % [place] % (Auto) (4.4-15.7) % Eos % (Auto) (0.6-8.1) % Baso % (Auto) (0.2-1.5) % Neut # (Auto) (1.5-6.3) x10-3/uL Lymph # (Auto) (1.0-4.4) x10-3/uL [place] # (Auto) (0.3-1.0) x10-3/uL Eos # (Auto) (0.0-0.8) x10-3/uL Baso # (Auto) (0.0-0.1) x10-3/uL Sodium (135-145) mmol/L Potassium (3.5-5.3) mmol/L Chloride (100-110) mmol/L Carbon Dioxide (21-32) mmol/L BUN (7-18) mg/dL Creatinine (0.55-1.02) mg/dL Est Cr Clr Drug Dosing mL/min Estimated GFR (MDRD) (>60) BUN/Creatinine Ratio (9-20) Glucose (80-116) mg/dL Calcium (8.6-10.2) mg/dL Total Bilirubin (0.1-1.3) mg/dL AST (5-25) IU/L ALT (12-36) U/L Alkaline Phosphatase (56-112) IU/L Troponin I 4.5 (4.0-60.3) pg/mL Total Protein (6.0-8.0) g/dL Albumin (3.5-5.2) g/dL Globulin g/dL Albumin/Globulin Ratio Urine Color (YELLOW) Urine Appearance (CLEAR) Urine pH (5.0-6.5) Ur Specific [place] (1.010-1.025) Urine Protein (NEGATIVE) mg/dL Urine Glucose (UA) (NORMAL) mg/dL Urine Ketones (NEGATIVE) mg/dL Urine Occult Blood (NEGATIVE) Urine Nitrite (NEGATIVE) Urine Bilirubin (NEGATIVE) Urine Urobilinogen (NEGATIVE) mg/dL Ur Leukocyte Esterase (NEGATIVE) Urine RBC (0-5) Urine WBC (0-5) Ur Squamous Epith Cells (NS,R,O) Urine Bacteria (NS) Meds: Medications Generic Name Dose Route Start Last Admin Trade Name Freq PRN Reason Stop Dose Admin Sodium Chloride 10 ml 12/15/20 12:36 12/15/20 12:50 Sodium Chloride 0.9% 10 Ml Syringe FLUSH 10 ml ASDIRECTED PRN Administration Keep Vein Open Discontinued Medications Generic Name Dose Route Start Last Admin Trade Name Freq PRN Reason Stop Dose Admin Sodium Chloride 1,000 mls @ 999 mls/hr 12/15/20 12:36 12/15/20 13:05 Normal Saline IV 12/15/20 13:36 999 mls/hr .BOLUS ONE Administration Meclizine HCl 25 mg 12/15/20 12:36 12/15/20 13:08 Meclizine 25 Mg Tab PO 12/15/20 12:37 25 mg ONETIME ONE Administration - Radiology Interpretation Free Text/Narrative:: CT Head s/ contrast: IMPRESSION: No acute intracranial abnormality. Dictated by Uli Zaragoza MD @ Dec 15 2020 1:15PM - Re-Assessments/Exams Free Text/Narrative Re-Assessment/Exam: 12/15/20 13:52 BP improved to 151/79. Vertigo improved after Meclizine 25mg PO. Departure - Departure Time of Disposition: 13:52 Disposition: Home, Self-Care 01 Condition: Good Clinical Impression: Benign positional vertigo Qualifiers: Laterality: unspecified laterality Qualified Code(s): H81.10 - Benign paroxysmal vertigo, unspecified ear - Discharge Information *PRESCRIPTION DRUG MONITORING PROGRAM REVIEWED*: No *COPY OF PRESCRIPTION DRUG MONITORING REPORT IN PATIENT CRISTY: Not Applicable Prescriptions: Meclizine HCl 25 mg PO Q6H PRN #30 tablet PRN Reason: Dizziness Referrals: Migel Yoder, [Primary Care Provider] - Forms: ED Department Discharge, ED Return to Work/School Form Additional Instructions: Fill the prescription for Meclizine at [facility] and take as directed. Follow up with your primary physician in 2-3 days if symptoms don't improve. Return to the ER if symptoms worsen. Sepsis Event Note (ED) - Evaluation Sepsis Screening Result: No Definite Risk - Focused Exam Vital Signs: Vital Signs Temp Pulse Resp BP BP Pulse Ox 12/15/20 13:10 67 16 151/79 H 97 12/15/20 12:25 36.8 C 65 18 172/86 H 173/91 H 99 12/15/20 12:18 36.8 C 65 18 172/86 H 173/91 H 99 - My Orders Last 24 Hours: My Active Orders 12/15/20 12:35 EKG 12 Lead [EK] Stat 12/15/20 12:36 EKG Documentation Completion [RC] ASDIRECTED Sodium Chloride 0.9% [Saline Flush] 10 ml FLUSH ASDIRECTED PRN Saline Lock Insert [OM.PC] Routine 12/15/20 12:37 Head wo Cont [CT] Stat - Assessment/Plan Last 24 Hours: My Active Orders 12/15/20 12:35 EKG 12 Lead [EK] Stat 12/15/20 12:36 EKG Documentation Completion [RC] ASDIRECTED Sodium Chloride 0.9% [Saline Flush] 10 ml FLUSH ASDIRECTED PRN Saline Lock Insert [OM.PC] Routine 12/15/20 12:37 Head wo Cont [CT] Stat
--- NOTE | 2020-12-15 12:52 | PCM.EKG ---
#1 Interpretation EKG Date: 12/15/20 Time: 12:39 Rhythm: NSR Rate (Beats/Min): 63 [place]: Normal P-Wave: Present QRS: Normal ST-T: Normal QT: Normal Comparison: No Change (02/13/2020)
[2020-12-15 14:04] VITALS: BP 159/86; PULSE 68
== END 2020-12-15 14:02 | disposition home or self-care (01) ==
LOC: FB.ED 12:16
DX: H81.10 Benign paroxysmal vertigo, unspecified ear (principal); E78.00 Pure hypercholesterolemia, unspecified; I10 Essential (primary) hypertension; K21.9 Gastro-esophageal reflux disease without esophagitis; E11.42 Type 2 diabetes mellitus with diabetic polyneuropathy; E66.9 Obesity, unspecified; Z68.30 Body mass index [BMI] 30.0-30.9, adult; Z91.048 Other nonmedicinal substance allergy status; Z79.82 Long term (current) use of aspirin; Z79.4 Long term (current) use of insulin; Z79.899 Other long term (current) drug therapy
CPT/HCPCS: 36415; 70450; 80053; 81001; 84484; 85025; 93005; 93010; 99283; 99284-25; A9270-GY; J7030

== ENCOUNTER 2021-04-17 08:09 | Emergency (ER) | payer MEDICARE, MEDICAID ==
[2021-04-17 08:23] VITALS: BP 146/62; PULSE 66
[2021-04-17] MEDS ORDERED: Sodium Chloride 0.9% 10 ML Syringe FLUSH PRN (08:36)
[2021-04-17] MEDS ORDERED: Ondansetron 4 MG/2 ML SDV IVPUSH STA (08:36)
[2021-04-17] MEDS ORDERED: Ketorolac 30 MG/ML SDV IVPUSH STA (08:38)
[2021-04-17] MEDS ORDERED: Sodium Chloride 0.9% 1,000 ML IV SCH (08:45)
--- NOTE | 2021-04-17 08:48 | EDM.PDOC ---
ED HPI GENERAL MEDICAL PROBLEM - General Chief Complaint: Headache Stated Complaint: mirgraine Time Seen by Provider: 04/17/21 08:25 Source of Information: Reports: Patient History Limitations: Reports: No Limitations - History of Present Illness INITIAL COMMENTS - FREE TEXT/NARRATIVE: Patient presented to the ED because of headache which started early this morning. It's throbbing, 10/10, with associated photophobia nausea and vomiting X 4. She denies having any fever, chills or neck stiffness. She has a history of migraine and she has an acute attack of migraine at least twice a year. Headache Pain Score (Numeric/FACES): 10 - Related Data Allergies Allergy/AdvReac Type Severity Reaction Status Date / Time adhesive Allergy Rash Verified 12/15/20 12:35 Home Meds: Home Meds Aspirin [Adult Low Dose Aspirin EC] 81 mg PO DAILY 09/16/14 [History] DULoxetine [Cymbalta] 60 mg PO DAILY 12/11/15 [History] Omeprazole Magnesium [Prilosec Otc] 20 mg PO DAILY 02/10/17 [History] Simvastatin 20 mg PO BEDTIME 08/29/18 [History] Pregabalin [Lyrica] 150 mg PO BID 02/13/20 [History] Insulin Glarg,Human.Rec.Analog [Lantus Solostar] 50 units SQ DAILY 12/15/20 [History] Meclizine HCl 25 mg PO Q6H PRN #30 tablet 12/15/20 [Rx] DULoxetine [Cymbalta] 30 mg PO DAILY 04/17/21 [History] Exenatide Microspheres [Bydureon] 2 mg INJECT WEEKLY 04/17/21 [History] Levothyroxine 25 mcg PO DAILY 04/17/21 [History] Ondansetron [Zofran ODT] 4 mg PO Q4H PRN #5 tab.dis 04/17/21 [Rx] Oxybutynin Chloride [Ditropan Xl] 10 mg PO DAILY 04/17/21 [History] lisinopriL [Lisinopril] 20 mg PO DAILY 04/17/21 [History] metFORMIN [Glucophage] 1,000 mg PO DAILY 04/17/21 [History] Past Medical History HEENT History: Reports: Cataract, Impaired Vision Cardiovascular History: Reports: High Cholesterol, Hypertension Respiratory History: Reports: SOB Gastrointestinal History: Reports: Gastritis, GERD Genitourinary History: Reports: None 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 MANAGER History: VULVULAR / VAGINAL LESIONS REMOVED Musculoskeletal History: Reports: Fibromyalgia, Other (See Below) Other Musculoskeletal History: MYALGIA AND MYOSITIS Neurological History: Reports: Migraines, Neuropathy, Peripheral Psychiatric History: Reports: Anxiety, Depression Endocrine/Metabolic History: Reports: Diabetes, Type II, Hypothyroidism, Obesity/BMI 30+ Hematologic History: Reports: None Immunologic History: Reports: None Oncologic (Cancer) History: Reports: Cervix Dermatologic History: Reports: None - Infectious Disease History Infectious Disease History: Reports: Chicken Pox, Shingles - Past Surgical History Head Surgeries/Procedures: Reports: None HEENT Surgical History: Reports: Cataract Surgery, Oral Surgery, Tonsillectomy Other HEENT Surgeries/Procedures: BILATERAL CATARACT SURGERY Cardiovascular Surgical History: Reports: None Respiratory Surgical History: Reports: None GI Surgical History: Reports: Appendectomy, Colonoscopy, EGD Female Surgical History: Reports: Hysterectomy, Other (See Below) Other Female Surgeries/Procedures: URETHRAL SUSPENPENSION, BLADDER REPAIR Endocrine Surgical History: Reports: None Musculoskeletal Surgical History: Reports: Carpal Tunnel Oncologic Surgical History: Reports: None Social & Family History - Family History Family Medical History: No Pertinent Family History - Tobacco Use Tobacco Use Status *Q: Current Every Day Tobacco User Years of Tobacco use: 30 Packs/Tins Daily: 0.5 - Caffeine Use Caffeine Use: Reports: Soda Caffeine Use Comment: 4 cans daily of diet coke - Recreational Drug Use Recreational Drug Use: No - Living Situation & Occupation Living situation: Reports: with Significant Other (She has a fianc.) Occupation: Disabled (But she is also employed part-time at [employer].) ED [facility] GENERAL - Review of Systems Review Of Systems: See Below Constitutional: Reports: No Symptoms HEENT: Reports: No Symptoms Respiratory: Reports: No Symptoms Cardiovascular: Reports: No Symptoms Endocrine: Reports: No Symptoms GI/Abdominal: Reports: Nausea, Vomiting : Reports: No Symptoms Musculoskeletal: Reports: No Symptoms Skin: Reports: No Symptoms Neurological: Reports: Headache Psychiatric: Reports: No Symptoms Hematologic/Lymphatic: Reports: No Symptoms - Physical Exam Exam: See Below Exam Limited By: No Limitations General Appearance: Alert, No Apparent Distress Ears: Normal External Exam, Normal [place] Nose: Normal Inspection, Normal Mucosa, No Blood Throat/Mouth: Normal Inspection, Normal Lips, Normal Teeth, Normal Gums Head Exam: Atraumatic, Normocephalic Neck: Normal Inspection, Supple, Non-Tender, Full Range of Motion Respiratory/Chest: No Respiratory Distress, Lungs Clear, Normal Breath Sounds Cardiovascular: Normal Peripheral Pulses, Regular Rate, Rhythm, No Edema GI/Abdominal: Normal Bowel Sounds, Soft, Non-Tender, No Organomegaly Neuro Exam (Abbreviated): Alert, Oriented, CN II-XII Intact, Normal Cognition, Normal Gait, Normal Reflexes, No Motor/Sensory Deficits Back Exam: Normal Inspection, Full Range of Motion Extremities: Normal Inspection, Normal Range of Motion, Non-Tender Psychiatric: Normal Affect, Normal Mood Skin Exam: Warm Course - Vital Signs Text/Narrative:: Lab result was reviewed and discussed with patient NS 1 L bolus Zofran 4 mg IV x1 Toradol 30 mg IV x1 [place] 5/325, 2 PO x1 Her headache did improved significantly after the above treatment Last Recorded V/S: Last Vital Signs Temp 36.6 C 04/17/21 08:09 Pulse 66 04/17/21 08:09 Resp 18 04/17/21 08:09 BP 146/62 H 04/17/21 08:09 Pulse Ox 97 04/17/21 08:09 - Orders/Labs/Meds Orders: Active Orders 24 hr Category Date Time Status Sodium Chloride 0.9% [Normal Saline] 1,000 ml Med 04/17/21 08:45 Active IV ASDIRECTED Sodium Chloride 0.9% [Saline Flush] Med 04/17/21 08:36 Active 10 ml FLUSH ASDIRECTED PRN Saline Lock Insert [OM.PC] Routine Oth 04/17/21 08:36 Ordered Medication Orders Sodium Chloride (Normal Saline) 1,000 mls @ 999 mls/hr IV ASDIRECTED SAUL Last Admin: 04/17/21 09:00 Dose: 999 mls/hr Documented by: MIGUEL Sodium Chloride (Sodium Chloride 0.9% 10 Ml Syringe) 10 ml FLUSH ASDIRECTED PRN PRN Reason: Keep Vein Open Last Admin: 04/17/21 08:58 Dose: 10 ml Documented by: MIGUEL Labs: Laboratory Tests 04/17/21 04/17/21 Range/Units 09:20 09:20 WBC 9.3 (3.0-10.3) x10-3/uL RBC 4.50 (3.60-5.20) x10(6)uL Hgb 13.0 (11.4-15.5) g/dL Hct 39.4 (34.2-48.2) % MCV 87.5 (76.7-100.5) fL MCH 28.8 (23.9-33.9) pg MCHC 32.9 (31.9-34.8) g/dL RDW 14.9 (12.3-16.5) % Plt Count 300 (151-488) x10(3)uL MPV 7.2 (7.1-12.4) fL Neut % (Auto) 66.5 (30.8-76.2) % Lymph % (Auto) 25.8 (18.4-52.1) % [place] % (Auto) 5.3 (4.4-15.7) % Eos % (Auto) 1.8 (0.6-8.1) % Baso % (Auto) 0.6 (0.2-1.5) % Neut # (Auto) 6.2 (1.5-6.3) x10-3/uL Lymph # (Auto) 2.4 (1.0-4.4) x10-3/uL [place] # (Auto) 0.5 (0.3-1.0) x10-3/uL Eos # (Auto) 0.2 (0.0-0.8) x10-3/uL Baso # (Auto) 0.1 (0.0-0.1) x10-3/uL Sodium 143 (135-145) mmol/L Potassium 4.3 (3.5-5.3) mmol/L Chloride 106 (100-110) mmol/L Carbon Dioxide 29 (21-32) mmol/L BUN 16 (7-18) mg/dL Creatinine 0.8 (0.55-1.02) mg/dL Est Cr Clr Drug Dosing 68.13 mL/min Estimated GFR (MDRD) > 60 (>60) BUN/Creatinine Ratio 20.0 (9-20) Glucose 178 H (80-116) mg/dL Calcium 8.4 L (8.6-10.2) mg/dL Meds: Medications Generic Name Dose Route Start Last Admin Trade Name Hattie PRN Reason Stop Dose Admin Sodium Chloride 1,000 mls @ 999 mls/hr 04/17/21 08:45 04/17/21 09:00 Normal Saline IV 999 mls/hr ASDIRECTED SAUL Administration Sodium Chloride 10 ml 04/17/21 08:36 04/17/21 08:58 Sodium Chloride 0.9% 10 Ml Syringe FLUSH 10 ml ASDIRECTED PRN Administration Keep Vein Open Discontinued Medications Generic Name Dose Route Start Last Admin Trade Name Hattie PRN Reason Stop Dose Admin Hydrocodone Bitart/Acetaminophen 2 tab 04/17/21 09:31 Acetaminophen/Hydrocodone 325-5 Mg Tab PO 04/17/21 09:32 NOW STA Ketorolac Tromethamine 30 mg 04/17/21 08:38 04/17/21 09:04 Ketorolac 30 Mg/Ml Sdv IVPUSH 04/17/21 08:39 30 mg NOW STA Administration Ondansetron HCl 4 mg 04/17/21 08:36 04/17/21 09:00 Ondansetron 4 Mg/2 Ml Sdv IVPUSH 04/17/21 08:37 4 mg NOW STA Administration Departure - Departure Time of Disposition: 10:00 Disposition: Home, Self-Care 01 Condition: Good Clinical Impression: Dehydration Migraine Qualifiers: Migraine type: without aura Status migrainosus presence: with status migrainosus Intractability: not intractable Qualified Code(s): G43.001 - Migraine without aura, not intractable, with status migrainosus - Discharge Information Prescriptions: Ondansetron [Zofran ODT] 4 mg PO Q4H PRN #5 tab.dis PRN Reason: Nausea Instructions: Migraine Headache, [id number], Dehydration, Adult, [id number] Referrals: Migel Yoder, [Primary Care Provider] - Forms: ED Department Discharge Additional Instructions: Please read discharge instructions on migraine and dehydration Zofran ODT 4 mg every 4 hours as needed for nausea/vomiting Ibuprofen 800 mg with tylenol 1000 mg every 8 hours as needed for your headache Follow up as needed Sepsis Event Note (ED) - Evaluation Sepsis Screening Result: No Definite Risk - Focused Exam Vital Signs: Vital Signs Temp Pulse Resp BP Pulse Ox 04/17/21 08:09 36.6 C 66 18 146/62 H 97 - My Orders Last 24 Hours: My Active Orders 04/17/21 08:36 Sodium Chloride 0.9% [Saline Flush] 10 ml FLUSH ASDIRECTED PRN Saline Lock Insert [OM.PC] Routine 04/17/21 08:45 Sodium Chloride 0.9% [Normal Saline] 1,000 ml IV ASDIRECTED - Assessment/Plan Last 24 Hours: My Active Orders 04/17/21 08:36 Sodium Chloride 0.9% [Saline Flush] 10 ml FLUSH ASDIRECTED PRN Saline Lock Insert [OM.PC] Routine 04/17/21 08:45 Sodium Chloride 0.9% [Normal Saline] 1,000 ml IV ASDIRECTED
[2021-04-17] MEDS ORDERED: Acetaminophen/HYDROcodone 325-5 MG Tab PO STA (09:31)
== END 2021-04-17 10:16 | disposition home or self-care (01) ==
LOC: FB.ED 08:09
DX: G43.001 Migraine without aura, not intractable, with status migrainosus (principal); E86.0 Dehydration; E78.00 Pure hypercholesterolemia, unspecified; I10 Essential (primary) hypertension; K21.9 Gastro-esophageal reflux disease without esophagitis; E11.42 Type 2 diabetes mellitus with diabetic polyneuropathy; E03.9 Hypothyroidism, unspecified; E66.9 Obesity, unspecified; Z68.31 Body mass index [BMI] 31.0-31.9, adult; Z72.0 Tobacco use; Z79.82 Long term (current) use of aspirin; Z79.4 Long term (current) use of insulin; Z79.899 Other long term (current) drug therapy; Z91.048 Other nonmedicinal substance allergy status
CPT/HCPCS: 36415; 80048; 85025; 96374; 96375; 99283-25; A9270-GY; J1885; J2405; J7030

== ENCOUNTER 2021-07-03 18:56 | Emergency (ER) | payer MEDICARE, MEDICAID ==
[2021-07-03] MEDS ORDERED: Sodium Chloride 0.9% 10 ML Syringe FLUSH PRN (19:27)
[2021-07-03] MEDS ORDERED: Ondansetron 4 MG/2 ML SDV IVPUSH STA (19:27)
[2021-07-03] MEDS ORDERED: Ketorolac 30 MG/ML SDV IVPUSH STA (19:27)
[2021-07-03] MEDS ORDERED: Sodium Chloride 0.9% 1,000 ML IV SCH (19:30)
[2021-07-03] MEDS ORDERED: Sulfamethoxazole/Trimethoprim 800-160 MG Tab PO STA (20:17)
--- NOTE | 2021-07-03 20:17 | EDM.PDOC ---
ED HPI GENERAL MEDICAL PROBLEM - General Chief Complaint: Gastrointestinal Problem Stated Complaint: THROWING UP Time Seen by Provider: 07/03/21 19:05 Source of Information: Reports: Patient History Limitations: Reports: No Limitations - History of Present Illness INITIAL COMMENTS - FREE TEXT/NARRATIVE: Patient presented to the ED because of nausea,vomiting x2 yesterday and today she has bifrontal headache that is throbbing with associated photophobia. There is no fever, chills or neck stiffness. - Related Data Allergies Allergy/AdvReac Type Severity Reaction Status Date / Time adhesive Allergy Rash Verified 07/03/21 19:20 Home Meds: Home Meds Aspirin [Adult Low Dose Aspirin EC] 81 mg PO DAILY 09/16/14 [History] DULoxetine [Cymbalta] 60 mg PO DAILY 12/11/15 [History] Omeprazole Magnesium [Prilosec Otc] 20 mg PO DAILY 02/10/17 [History] Simvastatin 20 mg PO BEDTIME 08/29/18 [History] Pregabalin [Lyrica] 150 mg PO BID 02/13/20 [History] Insulin Glarg,Human.Rec.Analog [Lantus Solostar] 50 units SQ DAILY 12/15/20 [History] Meclizine HCl 25 mg PO Q6H PRN #30 tablet 12/15/20 [Rx] DULoxetine [Cymbalta] 30 mg PO DAILY 04/17/21 [History] Exenatide Microspheres [Bydureon] 2 mg INJECT WEEKLY 04/17/21 [History] Levothyroxine 25 mcg PO DAILY 04/17/21 [History] Ondansetron [Zofran ODT] 4 mg PO Q4H PRN #5 tab.dis 04/17/21 [Rx] Oxybutynin Chloride [Ditropan Xl] 10 mg PO DAILY 04/17/21 [History] lisinopriL [Lisinopril] 20 mg PO DAILY 04/17/21 [History] metFORMIN [Glucophage] 1,000 mg PO DAILY 04/17/21 [History] Empagliflozin [Jardiance] 10 mg PO DAILY 07/03/21 [History] Ondansetron [Zofran ODT] 4 mg PO Q4H PRN #5 tab.dis 07/03/21 [Rx] Sulfamethoxazole/Trimethoprim [Bactrim Ds Tablet] 1 each PO BID #10 tablet 07/03/21 [Rx] Past Medical History HEENT History: Reports: Cataract, Impaired Vision Cardiovascular History: Reports: High Cholesterol, Hypertension Respiratory History: Reports: SOB Gastrointestinal History: Reports: Gastritis, GERD Genitourinary History: Reports: None 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: Reports: Other (See Below) Other 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 History: VULVULAR / VAGINAL LESIONS REMOVED Musculoskeletal History: Reports: Fibromyalgia, Other (See Below) Other Musculoskeletal History: MYALGIA AND MYOSITIS Neurological History: Reports: Migraines, Neuropathy, Peripheral Psychiatric History: Reports: Anxiety, Depression Endocrine/Metabolic History: Reports: Diabetes, Type II, Hypothyroidism, Obesity/BMI 30+ Hematologic History: Reports: None Immunologic History: Reports: None Oncologic (Cancer) History: Reports: Cervix Dermatologic History: Reports: None - Infectious Disease History Infectious Disease History: Reports: Chicken Pox, Shingles - Past Surgical History Head Surgeries/Procedures: Reports: None HEENT Surgical History: Reports: Cataract Surgery, Oral Surgery, Tonsillectomy Other HEENT Surgeries/Procedures: BILATERAL CATARACT SURGERY Cardiovascular Surgical History: Reports: None Respiratory Surgical History: Reports: None GI Surgical History: Reports: Appendectomy, Colonoscopy, EGD Female Surgical History: Reports: Hysterectomy, Other (See Below) Other Female Surgeries/Procedures: URETHRAL SUSPENPENSION, BLADDER REPAIR Endocrine Surgical History: Reports: None Musculoskeletal Surgical History: Reports: Carpal Tunnel Oncologic Surgical History: Reports: None Social & Family History - Family History Family Medical History: No Pertinent Family History - Tobacco Use Tobacco Use Status *Q: Current Every Day Tobacco User Years of Tobacco use: 35 Packs/Tins Daily: 0.5 - Caffeine Use Caffeine Use: Reports: Soda Caffeine Use Comment: 4 cans daily of diet coke - Recreational Drug Use Recreational Drug Use: No - Living Situation & Occupation Living situation: Reports: with Significant Other (She has a fianc.) Occupation: Disabled (But she is also employed part-time at [employer].) [facility] GENERAL - Review of Systems Review Of Systems: See Below Constitutional: Reports: No Symptoms HEENT: Reports: No Symptoms Respiratory: Reports: No Symptoms Cardiovascular: Reports: No Symptoms Endocrine: Reports: No Symptoms GI/Abdominal: Reports: Nausea, Vomiting : Reports: No Symptoms Musculoskeletal: Reports: No Symptoms, Back Pain Skin: Reports: No Symptoms Neurological: Reports: Headache Psychiatric: Reports: No Symptoms ED EXAM, GENERAL - Physical Exam Exam: See Below Exam Limited By: No Limitations General Appearance: Alert, No Apparent Distress Ears: Normal External Exam, Normal Canal Nose: Normal Inspection, Normal Mucosa, No Blood Throat/Mouth: Normal Inspection, Normal Lips, Normal Teeth Head: Atraumatic, Normocephalic Neck: Normal Inspection, Supple, Non-Tender, Full Range of Motion Respiratory/Chest: No Respiratory Distress, Lungs Clear, Normal Breath Sounds, No Accessory Muscle Use Cardiovascular: Normal Peripheral Pulses, Regular Rate, Rhythm, No Edema, No Gallop, No JVD, No Murmur, No Rub GI/Abdominal: Normal Bowel Sounds, Soft, Non-Tender, No Organomegaly, No Distention, No Abnormal Bruit, No Mass Back Exam: Normal Inspection, Full Range of Motion Extremities: Normal Inspection, Normal Range of Motion, Non-Tender, No Pedal Edema, Normal Capillary Refill Neurological: Alert, Oriented, CN II-XII Intact, Normal Cognition, Normal Gait Psychiatric: Normal Affect, Normal Mood Skin Exam: Warm Course - Vital Signs Text/Narrative:: Lab result was reviewed and discussed with patient Zofran 4 mg IV x1 Toradol 30 mg IV x1 Bactrim DS 1 PO x1 Last Recorded V/S: Last Vital Signs Temp 36.2 C 07/03/21 19:05 Pulse 81 07/03/21 19:05 Resp 18 07/03/21 19:05 BP 116/61 07/03/21 19:05 Pulse Ox 96 07/03/21 19:05 - Orders/Labs/Meds Orders: Active Orders 24 hr Category Date Time Status CULTURE URINE [RM] Stat Lab 07/03/21 19:15 Received Sodium Chloride 0.9% [Normal Saline] 1,000 ml Med 07/03/21 19:30 Active IV ASDIRECTED Sodium Chloride 0.9% [Saline Flush] Med 07/03/21 19:27 Active 10 ml FLUSH ASDIRECTED PRN Saline Lock Insert [OM.PC] Routine Oth 07/03/21 19:27 Ordered Medication Orders Sodium Chloride (Normal Saline) 1,000 mls @ 999 mls/hr IV ASDIRECTED SAUL Last Admin: 07/03/21 19:45 Dose: 999 mls/hr Documented by: CAN Sodium Chloride (Sodium Chloride 0.9% 10 Ml Syringe) 10 ml FLUSH ASDIRECTED PRN PRN Reason: Keep Vein Open Last Admin: 07/03/21 19:40 Dose: 10 ml Documented by: CAN Labs: Laboratory Tests 07/03/21 07/03/21 07/03/21 Range/Units 19:15 19:25 19:25 WBC 12.8 H (3.0-10.3) x10-3/uL RBC 4.91 (3.60-5.20) x10(6)uL Hgb 14.0 (11.4-15.5) g/dL Hct 43.7 (34.2-48.2) % MCV 89.1 (76.7-100.5) fL MCH 28.5 (23.9-33.9) pg MCHC 32.1 (31.9-34.8) g/dL RDW 15.1 (12.3-16.5) % Plt Count 366 (151-488) x10(3)uL MPV 7.5 (7.1-12.4) fL Neut % (Auto) 63.6 (30.8-76.2) % Lymph % (Auto) 28.9 (18.4-52.1) % [place] % (Auto) 5.1 (4.4-15.7) % Eos % (Auto) 1.9 (0.6-8.1) % Baso % (Auto) 0.5 (0.2-1.5) % Neut # (Auto) 8.1 H (1.5-6.3) x10-3/uL Lymph # (Auto) 3.7 (1.0-4.4) x10-3/uL [place] # (Auto) 0.7 (0.3-1.0) x10-3/uL Eos # (Auto) 0.2 (0.0-0.8) x10-3/uL Baso # (Auto) 0.1 (0.0-0.1) x10-3/uL Sodium 142 (135-145) mmol/L Potassium 4.3 (3.5-5.3) mmol/L Chloride 106 (100-110) mmol/L Carbon Dioxide 27 (21-32) mmol/L BUN 20 H (7-18) mg/dL Creatinine 0.9 (0.55-1.02) mg/dL Est Cr Clr Drug Dosing 60.56 mL/min Estimated GFR (MDRD) > 60 (>60) BUN/Creatinine Ratio 22.2 H (9-20) Glucose 230 H (80-116) mg/dL Calcium 8.6 (8.6-10.2) mg/dL Urine Color Yellow (YELLOW) Urine Appearance Clear (CLEAR) Urine pH 5.0 (5.0-6.5) Ur Specific [place] 1.015 (1.010-1.025) Urine Protein Trace (NEGATIVE) mg/dL Urine Glucose (UA) >1000 H (NORMAL) mg/dL Urine Ketones Negative (NEGATIVE) mg/dL Urine Occult Blood Moderate H (NEGATIVE) Urine Nitrite Negative (NEGATIVE) Urine Bilirubin Negative (NEGATIVE) Urine Urobilinogen Normal (NEGATIVE) mg/dL Ur Leukocyte Esterase Moderate H (NEGATIVE) U Hyaline Cast (Auto) Moderate H (NS) Urine RBC 0-5 (0-5) Urine WBC 0-5 (0-5) Ur Squamous Epith Cells Moderate H (NS,R,O) Urine Bacteria Moderate H (NS) Meds: Medications Generic Name Dose Route Start Last Admin Trade Name Freq PRN Reason Stop Dose Admin Sodium Chloride 1,000 mls @ 999 mls/hr 07/03/21 19:30 07/03/21 19:45 Normal Saline IV 999 mls/hr ASDIRECTED SAUL Administration Sodium Chloride 10 ml 07/03/21 19:27 07/03/21 19:40 Sodium Chloride 0.9% 10 Ml Syringe FLUSH 10 ml ASDIRECTED PRN Administration Keep Vein Open Discontinued Medications Generic Name Dose Route Start Last Admin Trade Name Freq PRN Reason Stop Dose Admin Ketorolac Tromethamine 30 mg 07/03/21 19:27 07/03/21 19:45 Ketorolac 30 Mg/Ml Sdv IVPUSH 07/03/21 19:28 30 mg NOW STA Administration Ondansetron HCl 4 mg 07/03/21 19:27 07/03/21 19:47 Ondansetron 4 Mg/2 Ml Sdv IVPUSH 07/03/21 19:28 4 mg NOW STA Administration Trimethoprim/Sulfamethoxazole 1 tab 07/03/21 20:17 07/03/21 20:40 Sulfamethoxazole/Trimethoprim 800-160 Mg Tab PO 07/03/21 20:18 1 tab NOW STA Administration Departure - Departure Time of Disposition: 19:15 Disposition: Home, Self-Care 01 Condition: Good Clinical Impression: UTI (urinary tract infection), Dehydration, Migraine - Discharge Information Prescriptions: Sulfamethoxazole/Trimethoprim [Bactrim Ds Tablet] 1 each PO BID #10 tablet Ondansetron [Zofran ODT] 4 mg PO Q4H PRN #5 tab.dis PRN Reason: Nausea Instructions: Nausea and Vomiting, Adult, [id number], Chronic Migraine Headache, [id number], Dehydration, Elderly, [id number] Referrals: PCP,None [Primary Care Provider] - Forms: ED Department Discharge Additional Instructions: Please read discharge instructions on Migraine, Dehydration, UTI Drink at least 2 liters of water daily Zofran ODT 4 mg every 4 hours as needed for nausea Bactrim DS twice daily for 5 days Follow up as needed Sepsis Event Note (ED) - Focused Exam Vital Signs: Vital Signs Temp Pulse Resp BP Pulse Ox 07/03/21 19:05 36.2 C 81 18 116/61 96 - My Orders Last 24 Hours: My Active Orders 07/03/21 19:15 CULTURE URINE [RM] Stat 07/03/21 19:27 Sodium Chloride 0.9% [Saline Flush] 10 ml FLUSH ASDIRECTED PRN Saline Lock Insert [OM.PC] Routine 07/03/21 19:30 Sodium Chloride 0.9% [Normal Saline] 1,000 ml IV ASDIRECTED - Assessment/Plan Last 24 Hours: My Active Orders 07/03/21 19:15 CULTURE URINE [RM] Stat 07/03/21 19:27 Sodium Chloride 0.9% [Saline Flush] 10 ml FLUSH ASDIRECTED PRN Saline Lock Insert [OM.PC] Routine 07/03/21 19:30 Sodium Chloride 0.9% [Normal Saline] 1,000 ml IV ASDIRECTED
[2021-07-04 02:18] VITALS: BP 158/68; PULSE 65
== END 2021-07-03 20:50 | disposition home or self-care (01) ==
LOC: FB.ED 18:56
DX: G43.909 Migraine, unspecified, not intractable, without status migrainosus (principal); N39.0 Urinary tract infection, site not specified; E86.0 Dehydration; E78.00 Pure hypercholesterolemia, unspecified; I10 Essential (primary) hypertension; E11.43 Type 2 diabetes mellitus with diabetic autonomic (poly)neuropathy; E03.9 Hypothyroidism, unspecified; E66.9 Obesity, unspecified; Z68.31 Body mass index [BMI] 31.0-31.9, adult; Z91.018 Allergy to other foods; Z79.82 Long term (current) use of aspirin; Z79.4 Long term (current) use of insulin; Z79.899 Other long term (current) drug therapy; Z72.0 Tobacco use
CPT/HCPCS: 36415; 80048; 81001; 85025; 87086; 87088; 87186; 96374; 96375; 99284; A9270; J1885; J2405; J7030

== ENCOUNTER 2022-01-25 21:48 | Emergency (ER) | payer MEDICARE, MEDICAID ==
[2022-01-25] MEDS ORDERED: Sodium Chloride 0.9% 10 ML Syringe FLUSH PRN (22:29)
[2022-01-25] MEDS ORDERED: Ondansetron 4 MG Tab.DIS PO ONE (22:31)
[2022-01-25] MEDS ORDERED: Ticagrelor 90 MG Tab PO ONE (22:50)
[2022-01-25] MEDS ORDERED: Metoprolol Tartrate 50 MG Tab PO ONE (22:50)
[2022-01-25] MEDS ORDERED: Aspirin 81 MG Tab.Chew PO ONE (22:51)
[2022-01-25] MEDS ORDERED: Heparin Sodium 5,000 Units/ML Vial IVPUSH ONE (22:51)
[2022-01-25] MEDS ORDERED: Metoprolol Tartrate 25 MG Tab PO ONE (22:58)
[2022-01-25] MEDS ORDERED: Heparin Sodium/0.45% NaCl 25,000 UNITS/500 ML BAG IV SCH (23:00)
[2022-01-25] MEDS ORDERED: Heparin Sodium/0.45% NaCl 500 ML IV SCH (23:45)
[2022-01-26] MEDS ORDERED: Heparin Sodium/0.45% NaCl 25,000 UNITS/500 ML BAG IV SCH (00:30)
[2022-01-28 08:23] VITALS: BP 153/63; PULSE 75
== END 2022-01-25 23:55 ==
LOC: FB.ED 21:48
DX: I21.9 Acute myocardial infarction, unspecified (principal); E78.00 Pure hypercholesterolemia, unspecified; I10 Essential (primary) hypertension; K21.9 Gastro-esophageal reflux disease without esophagitis; E11.9 Type 2 diabetes mellitus without complications; E03.9 Hypothyroidism, unspecified; E66.9 Obesity, unspecified; Z91.048 Other nonmedicinal substance allergy status; Z79.82 Long term (current) use of aspirin; Z79.899 Other long term (current) drug therapy; Z79.84 Long term (current) use of oral hypoglycemic drugs; Z68.31 Body mass index [BMI] 31.0-31.9, adult; Z20.822 Contact with and (suspected) exposure to COVID-19
CPT/HCPCS: 36415; 71046; 80048; 81001; 84484; 85027; 93005; 93010; 96365; 96376; 99285; 99285-25; A9270-GY; J1644; Q0162; U0002

== ENCOUNTER 2022-06-12 22:36 | Emergency (ER) | payer MEDICARE ==
[2022-06-12] MEDS ORDERED: Lidocaine 2% Viscous Solution 15 ML UD PO ONE (23:42)
[2022-06-13 01:18] VITALS: BP 100/54; PULSE 71
== END 2022-06-13 00:20 | disposition home or self-care (01) ==
LOC: FB.ED 22:36
DX: R07.0 Pain in throat (principal); J44.9 Chronic obstructive pulmonary disease, unspecified; E78.00 Pure hypercholesterolemia, unspecified; I10 Essential (primary) hypertension; E11.9 Type 2 diabetes mellitus without complications; E66.9 Obesity, unspecified; Z68.30 Body mass index [BMI] 30.0-30.9, adult; Z91.048 Other nonmedicinal substance allergy status; Z79.82 Long term (current) use of aspirin; Z79.899 Other long term (current) drug therapy; Z79.4 Long term (current) use of insulin; Z79.84 Long term (current) use of oral hypoglycemic drugs; Z90.49 Acquired absence of other specified parts of digestive tract
CPT/HCPCS: 70360; 99281; 99283; A9270-GY

== ENCOUNTER 2022-07-29 14:16 | Emergency (ER) | payer MEDICARE ==
[2022-07-29] MEDS ORDERED: Sodium Chloride 0.9% 10 ML Syringe FLUSH PRN (14:34)
[2022-07-29] MEDS ORDERED: Nitroglycerin 0.4 MG Tab.SL SL PRN (14:36)
[2022-07-29 14:56] LABS: ESTIMATED GFR 64 mL/min (>60)
[2022-07-29] MEDS ORDERED: Morphine 4 MG/ML VIAL IVPUSH ONE (14:57)
[2022-07-29 14:58] VITALS: BP 117/63; PULSE 78
[2022-07-29] MEDS ORDERED: Sodium Chloride 0.9% 1,000 ML IV SCH (15:00)
[2022-07-29] MEDS ORDERED: Sodium Chloride 0.9% 500 ML IV ONE (15:00)
[2022-07-29] MEDS ORDERED: Sodium Chloride 0.9% 500 ML IV SCH (15:27)
[2022-07-29] MEDS ORDERED: Ketorolac 30 MG/ML SDV IVPUSH ONE (16:08)
== END 2022-07-29 17:05 | disposition home or self-care (01) ==
LOC: FB.ED 14:16
DX: R07.89 Other chest pain (principal); J44.9 Chronic obstructive pulmonary disease, unspecified; I10 Essential (primary) hypertension; I25.2 Old myocardial infarction; E11.9 Type 2 diabetes mellitus without complications; E03.9 Hypothyroidism, unspecified; E66.9 Obesity, unspecified; F17.210 Nicotine dependence, cigarettes, uncomplicated; Z68.30 Body mass index [BMI] 30.0-30.9, adult; Z91.048 Other nonmedicinal substance allergy status; Z79.82 Long term (current) use of aspirin; Z79.899 Other long term (current) drug therapy; Z79.84 Long term (current) use of oral hypoglycemic drugs
CPT/HCPCS: 36415; 71045; 80053; 83880; 84484; 85025; 85610; 85730; 93005; 96374; 96375; 99285; A9270; J1885; J2270; J7030

== ENCOUNTER 2022-09-25 22:29 | Emergency (ER) | payer MEDICARE ==
[2022-09-25] MEDS ORDERED: Sodium Chloride 0.9% 1,000 ML IV ONE (22:55)
[2022-09-25] MEDS ORDERED: Ketorolac 30 MG/ML SDV IVPUSH ONE (22:55)
[2022-09-25] MEDS ORDERED: Metoclopramide 10 MG/2 ML SDV IVPUSH ONE (22:55)
[2022-09-25] MEDS ORDERED: Sodium Chloride 0.9% 10 ML Syringe FLUSH PRN (23:08)
[2022-09-25 23:28] LABS: ESTIMATED GFR 47 mL/min (>60)
[2022-09-26] MEDS ORDERED: Potassium Chloride 20 MEQ Tab.ER PO ONE (00:01)
[2022-09-26] MEDS ORDERED: Cefuroxime 250 MG Tab PO ONE (00:08)
[2022-09-26 00:30] VITALS: BP 104/60; PULSE 76
[2022-09-26 01:08] LABS: CORONAVIRUS COVID-19 NAA NEGATIVE (NEGATIVE)
== END 2022-09-26 00:25 | disposition home or self-care (01) ==
LOC: FB.ED 22:29
DX: G43.909 Migraine, unspecified, not intractable, without status migrainosus (principal); E86.0 Dehydration; N17.9 Acute kidney failure, unspecified; E11.22 Type 2 diabetes mellitus with diabetic chronic kidney disease; I12.9 Hypertensive chronic kidney disease with stage 1 through stage 4 chronic kidney disease, or unspecified chronic kidney disease; N18.9 Chronic kidney disease, unspecified; J20.9 Acute bronchitis, unspecified; R79.82 Elevated C-reactive protein (CRP); D72.829 Elevated white blood cell count, unspecified; E78.00 Pure hypercholesterolemia, unspecified; I25.2 Old myocardial infarction; J44.9 Chronic obstructive pulmonary disease, unspecified; K21.9 Gastro-esophageal reflux disease without esophagitis; E03.9 Hypothyroidism, unspecified; E66.9 Obesity, unspecified; F17.200 Nicotine dependence, unspecified, uncomplicated; Z91.048 Other nonmedicinal substance allergy status; Z79.82 Long term (current) use of aspirin; Z79.4 Long term (current) use of insulin; Z79.02 Long term (current) use of antithrombotics/antiplatelets; Z79.899 Other long term (current) drug therapy; Z20.822 Contact with and (suspected) exposure to COVID-19; Z68.31 Body mass index [BMI] 31.0-31.9, adult
CPT/HCPCS: 0241U; 36415; 80048; 84484; 85025; 86140; 96361; 96374; 96375; 99283-25; A9270-GY; J1885; J2765; J3490; J7030

== ENCOUNTER 2022-10-22 07:00 | Day surgery (SDC) | payer MEDICARE ==
[~2022-10-22 07:00] MED LIST: Lactated Ringers 1,000 ML IV SCH; Sodium Chloride 0.9% 10 ML Syringe FLUSH PRN
[2022-10-22] MEDS ORDERED: Lidocaine 2% 5 ML SDV IV ONE (07:01)
[2022-10-22] MEDS ORDERED: Propofol 200 MG/20 ML SDV IV ONE (07:01)
[2022-10-22] MEDS ORDERED: Glycopyrrolate 0.2 MG/ML 5 ML MDV IV ONE (07:01)
[2022-10-22 08:20] VITALS: BP 153/79; PULSE 62
== END 2022-10-22 09:34 | disposition home or self-care (01) ==
LOC: FB.SDS 07:00
PROVIDERS: ATTEND Surgery
DX: K29.50 Unspecified chronic gastritis without bleeding (principal); K31.A0 Gastric intestinal metaplasia, unspecified; K21.9 Gastro-esophageal reflux disease without esophagitis; K25.9 Gastric ulcer, unspecified as acute or chronic, without hemorrhage or perforation; I10 Essential (primary) hypertension; E78.5 Hyperlipidemia, unspecified; J44.9 Chronic obstructive pulmonary disease, unspecified; E03.9 Hypothyroidism, unspecified; I21.4 Non-ST elevation (NSTEMI) myocardial infarction; E11.319 Type 2 diabetes mellitus with unspecified diabetic retinopathy without macular edema; F32.A Depression, unspecified; F17.210 Nicotine dependence, cigarettes, uncomplicated; Z79.899 Other long term (current) drug therapy; Z79.890 Hormone replacement therapy; Z79.84 Long term (current) use of oral hypoglycemic drugs; Z79.4 Long term (current) use of insulin
CPT/HCPCS: 00731; 43239; 82947; 88305; 88342; J2704; J3490; J7120

== ENCOUNTER 2022-12-26 16:44 | Emergency (ER) | payer MEDICARE ==
[2022-12-26] MEDS ORDERED: Amoxicillin/Clavulanate K 875-125 MG Tab PO ONE (16:45)
[2022-12-26 17:33] LABS: ESTIMATED GFR 64 mL/min (>60)
[2022-12-26] MEDS ORDERED: cefTRIAXone 2 GM Vial IVPUSH ONE (17:54)
[2022-12-26] MEDS ORDERED: Sodium Chloride 0.9% 1,000 ML IV ONE (17:54)
[2022-12-26] MEDS ORDERED: Phenazopyridine 95 MG Tab PO STA ×2 (18:15→18:22)
[2022-12-26 19:34] VITALS: BP 137/72; PULSE 72
== END 2022-12-26 19:30 | disposition home or self-care (01) ==
LOC: FB.ED 16:44
DX: N39.0 Urinary tract infection, site not specified (principal); E11.43 Type 2 diabetes mellitus with diabetic autonomic (poly)neuropathy; J44.9 Chronic obstructive pulmonary disease, unspecified; I25.10 Atherosclerotic heart disease of native coronary artery without angina pectoris; E78.00 Pure hypercholesterolemia, unspecified; I10 Essential (primary) hypertension; E03.9 Hypothyroidism, unspecified; E66.9 Obesity, unspecified; Z68.30 Body mass index [BMI] 30.0-30.9, adult; Z79.82 Long term (current) use of aspirin; Z79.899 Other long term (current) drug therapy; Z79.4 Long term (current) use of insulin; Z79.84 Long term (current) use of oral hypoglycemic drugs; Z90.49 Acquired absence of other specified parts of digestive tract; Z90.710 Acquired absence of both cervix and uterus
CPT/HCPCS: 36415; 80053; 81001; 83605; 83735; 85025; 86140; 87086; 96361; 96374; 99283; A9270; J0696; J7030

== ENCOUNTER 2023-07-03 16:14 | Emergency (ER) | payer MEDICARE ==
[2023-07-03] MEDS ORDERED: Sodium Chloride 0.9% 1,000 ML IV SCH (16:30)
[2023-07-03 16:52] LABS: BASOPHILS PERCENT AUTO 0.5 % (0.2-1.5); EOSINOPHILS PERCENT AUTO 0.1 % (0.6-8.1); HEMATOCRIT 38.8 % (34.2-48.2); HEMOGLOBIN 12.8 g/dL (11.4-15.5); LYMPHOCYTES ABSOLUTE AUTO 1.5 x10-3/uL (1.0-4.4); LYMPHOCYTES PERCENT AUTO 22.8 % (18.4-52.1); MEAN CORPUSCULAR VOLUME 84.7 fL (76.7-100.5); MEAN PLATELET VOLUME 8.2 fL (7.1-12.4); MONOCYTES ABSOLUTE AUTO 0.7 x10-3/uL (0.3-1.0); MONOCYTES PERCENT AUTO 11.2 % (4.4-15.7); NEUTROPHILS ABSOLUTE AUTO 4.2 x10-3/uL (1.5-6.3); NEUTROPHILS PERCENT AUTO 65.4 % (30.8-76.2); PLATELET COUNT,PLT 241 x10(3)uL (151-488); RED BLOOD CELL COUNT 4.58 x10(6)uL (3.60-5.20); RED CELL DISTRIBUTION WIDTH 17.2 % (12.3-16.5); WHITE BLOOD CELL COUNT,WBC 6.5 x10-3/uL (3.0-10.3)
[2023-07-03] MEDS ORDERED: Ketorolac 30 MG/ML SDV IVPUSH ONE (16:54)
[2023-07-03] MEDS ORDERED: Dexamethasone 4 MG/ML 5 ML MDV IVPUSH ONE (16:54)
[2023-07-03 16:58] LABS: BLOOD UREA NITROGEN,BUN 18 mg/dL (7-18); BUN/CREATININE RATIO 16.4 (9-20); CARBON DIOXIDE,CO2 25 mmol/L (21-32); CHLORIDE,CL 103 mmol/L (100-110); CREATININE 1.1 mg/dL (0.55-1.02); ESTIMATED GFR 57 mL/min (>60); GLUCOSE RANDOM 169 mg/dL (80-116); POTASSIUM,K 3.7 mmol/L (3.5-5.3); SODIUM,NA 137 mmol/L (135-145)
[2023-07-03 17:05] LABS: A/G RATIO 0.9; ALANINE AMINOTRANSFERASE,ALT 19 U/L (12-36); ALBUMIN 3.3 g/dL (3.2-4.6); ALKALINE PHOSPHATASE 73 IU/L (56-112); ASPARTATE AMNIOTRANSFERASE,AST 29 IU/L (5-25); BILIRUBIN TOTAL 0.3 mg/dL (0.1-1.3); PROTEIN TOTAL,TP 6.9 g/dL (6.0-8.0)
[2023-07-03 17:07] LABS: LACTIC ACID 1.7 mmol/L (0.4-2.0)
[2023-07-03 18:01] LABS: INFLUENZA A NAA NEGATIVE (NEGATIVE); INFLUENZA B NAA NEGATIVE (NEGATIVE)
[2023-07-03 18:04] LABS: CORONAVIRUS COVID-19 NAA POSITIVE (NEGATIVE)
[2023-07-03 21:06] VITALS: BP 104/54; PULSE 78
== END 2023-07-03 18:34 | disposition home or self-care (01) ==
LOC: FB.ED 16:14
DX: U07.1 COVID-19 (principal); E66.9 Obesity, unspecified; J44.9 Chronic obstructive pulmonary disease, unspecified; I25.2 Old myocardial infarction; Z79.82 Long term (current) use of aspirin; E11.9 Type 2 diabetes mellitus without complications
CPT/HCPCS: 0240U; 71045; 80053; 83605; 84484; 85025; 93005; 96361; 96374; 96375; 99285; J1100; J1885; J7030

== ENCOUNTER 2023-11-11 20:18 | Emergency (ER) | payer MEDICARE ==
[2023-11-11] MEDS ORDERED: traMADol 50 MG Tab PO ONE (20:19)
[2023-11-11 20:41] VITALS: BP 122/64; PULSE 84
[2023-11-11] MEDS: traMADol 50 MG Tab PO ONE (21:18)
== END 2023-11-11 21:50 | disposition home or self-care (01) ==
LOC: FB.ED 20:18
DX: G44.209 Tension-type headache, unspecified, not intractable (principal); F17.210 Nicotine dependence, cigarettes, uncomplicated; I10 Essential (primary) hypertension; E78.00 Pure hypercholesterolemia, unspecified; I25.10 Atherosclerotic heart disease of native coronary artery without angina pectoris; J44.9 Chronic obstructive pulmonary disease, unspecified; E11.9 Type 2 diabetes mellitus without complications; E03.9 Hypothyroidism, unspecified; Z79.899 Other long term (current) drug therapy; Z79.82 Long term (current) use of aspirin; Z79.84 Long term (current) use of oral hypoglycemic drugs
CPT/HCPCS: 99283; A9270

== ENCOUNTER 2024-03-02 18:26 | Emergency (ER) | payer MEDICARE ==
[2024-03-02] MEDS ORDERED: Ondansetron 4 MG Tab.DIS PO ONE (18:27)
[2024-03-02] MEDS ORDERED: Sodium Chloride 0.9% 10 ML Syringe FLUSH PRN (18:56)
[2024-03-02 19:11] LABS: BASOPHILS ABSOLUTE AUTO 0.1 x10-3/uL (0.0-0.1); BASOPHILS PERCENT AUTO 0.9 % (0.2-1.5); EOSINOPHILS ABSOLUTE AUTO 0.1 x10-3/uL (0.0-0.8); EOSINOPHILS PERCENT AUTO 1.4 % (0.6-8.1); HEMATOCRIT 39.1 % (34.2-48.2); HEMOGLOBIN 12.2 g/dL (11.4-15.5); LYMPHOCYTES ABSOLUTE AUTO 3.3 x10-3/uL (1.0-4.4); MEAN CORPUSCULAR HGB CONC 31.2 g/dL (31.9-34.8); MEAN CORPUSCULAR VOLUME 83.3 fL (76.7-100.5); MEAN PLATELET VOLUME 7.9 fL (7.1-12.4); MONOCYTES ABSOLUTE AUTO 0.9 x10-3/uL (0.3-1.0); MONOCYTES PERCENT AUTO 8.2 % (4.4-15.7); NEUTROPHILS ABSOLUTE AUTO 6.3 x10-3/uL (1.5-6.3); NEUTROPHILS PERCENT AUTO 58.5 % (30.8-76.2); PLATELET COUNT,PLT 295 x10(3)uL (151-488); RED CELL DISTRIBUTION WIDTH 18.7 % (12.3-16.5); WHITE BLOOD CELL COUNT,WBC 10.8 x10-3/uL (3.0-10.3)
[2024-03-02 19:14] LABS: BLOOD UREA NITROGEN,BUN 20 mg/dL (7-18); BUN/CREATININE RATIO 16.7 (9-20); CALCIUM 8.8 mg/dL (8.6-10.2); CARBON DIOXIDE,CO2 28 mmol/L (21-32); CHLORIDE,CL 103 mmol/L (100-110); CREATININE 1.2 mg/dL (0.55-1.02); ESTIMATED GFR 52 mL/min (>60); GLUCOSE RANDOM 89 mg/dL (80-116); POTASSIUM,K 4.4 mmol/L (3.5-5.3); SODIUM,NA 139 mmol/L (135-145)
[2024-03-02 19:16] LABS: C-REACTIVE PROTEIN < 0.50 mg/dL (<0.50); LIPASE 29 U/L (16-77)
[2024-03-02] MEDS: Sodium Chloride 0.9% 500 ML IV ONE (19:16)
[2024-03-02] MEDS: Ketorolac 30 MG/ML SDV IVPUSH ONE (19:16)
[2024-03-02] MEDS: Ondansetron 4 MG/2 ML SDV IVPUSH ONE (19:16)
[2024-03-02 19:17] LABS: BILIRUBIN,URINE NEGATIVE (NEGATIVE); GLUCOSE,URINE 250 mg/dL (NORMAL); KETONES,URINE NEGATIVE (NEGATIVE); LEUKOCYTE ESTERASE,URINE NEGATIVE (NEGATIVE); NITRITE,URINE NEGATIVE (NEGATIVE); OCCULT BLOOD,URINE NEGATIVE (NEGATIVE); PROTEIN,URINE NEGATIVE (NEGATIVE); UROBILINOGEN,URINE NORMAL (NEGATIVE)
[2024-03-02 19:18] LABS: APPEARANCE,URINE CLEAR (CLEAR); BACTERIA,URINE RARE (NS); COLOR,URINE YELLOW (YELLOW); RBC,URINE 0-5 (0-5); SQUAMOUS EPITHELIAL CELLS,UR OCCASIONAL (NS,R,O); WBC,URINE 0-5 (0-5)
[2024-03-02 19:19] LABS: A/G RATIO 1.1; ALANINE AMINOTRANSFERASE,ALT 13 U/L (12-36); ALBUMIN 3.4 g/dL (3.2-4.6); ALKALINE PHOSPHATASE 58 IU/L (56-112); ASPARTATE AMNIOTRANSFERASE,AST 12 IU/L (5-25); BILIRUBIN TOTAL 0.5 mg/dL (0.1-1.3); MAGNESIUM 1.9 mg/dL (1.8-2.5); PROTEIN TOTAL,TP 6.5 g/dL (6.0-8.0)
[2024-03-02] MEDS: Iopamidol 755 Mg/ML 100 ML Bottle IV SCH (21:02)
[2024-03-02] MEDS: 50% Dextrose in Water 50 ML Syringe IVPUSH ONE (21:15)
[2024-03-02 22:04] VITALS: BP 142/59; PULSE 60
== END 2024-03-02 22:40 | disposition home or self-care (01) ==
LOC: FB.ED 18:26
DX: M54.16 Radiculopathy, lumbar region (principal); R11.2 Nausea with vomiting, unspecified; E86.0 Dehydration; E11.9 Type 2 diabetes mellitus without complications; I10 Essential (primary) hypertension; I25.10 Atherosclerotic heart disease of native coronary artery without angina pectoris; I25.2 Old myocardial infarction; M19.90 Unspecified osteoarthritis, unspecified site; J44.9 Chronic obstructive pulmonary disease, unspecified; E78.00 Pure hypercholesterolemia, unspecified; E66.9 Obesity, unspecified; E03.9 Hypothyroidism, unspecified; F17.210 Nicotine dependence, cigarettes, uncomplicated; Z68.25 Body mass index [BMI] 25.0-25.9, adult; Z79.4 Long term (current) use of insulin; Z79.82 Long term (current) use of aspirin; Z79.84 Long term (current) use of oral hypoglycemic drugs; Z79.890 Hormone replacement therapy; Z79.899 Other long term (current) drug therapy
CPT/HCPCS: 74177; 80053; 81001; 82947; 83690; 83735; 85025; 86140; 96361; 96374; 96375; 99284; 99284-25; J1885; J2405; J7040; Q0162; Q9967